=== PATIENT | female | born 1945 | race Caucasian/White ===

== ENCOUNTER 2020-12-29 13:01 | Emergency (ER) | payer MEDICARE, SELFPAY ==
--- NOTE | ~2020-12-29 | XR_ITS ---
EXAMINATION: PELVIS AND LEFT HIP AND SACRUM AND COCCYX X-RAYS CLINICAL INFORMATION: Fall COMPARISON: None TECHNIQUE: One view of the pelvis and 2 views of the left hip. 3 views of the sacrum and coccyx. FINDINGS: Pelvis and left hip x-ray: there is a left sacral fracture. There is a fracture of the left superior and inferior pubic ramus. The hip joints are normal. No left hip fracture is seen. Soft tissues are unremarkable. Sacrum and coccyx: There are fractures of the left sacrum and left superior and inferior pubic rami. The sacroiliac joints are normal. XR/XR hip LT w PEL1V IMPRESSION: Fracture of the left side of the sacrum and left superior and inferior pubic rami. No hip fracture is seen.
--- NOTE | ~2020-12-29 | XR_ITS ---
EXAMINATION: PELVIS AND LEFT HIP AND SACRUM AND COCCYX X-RAYS CLINICAL INFORMATION: Fall COMPARISON: None TECHNIQUE: One view of the pelvis and 2 views of the left hip. 3 views of the sacrum and coccyx. FINDINGS: Pelvis and left hip x-ray: there is a left sacral fracture. There is a fracture of the left superior and inferior pubic ramus. The hip joints are normal. No left hip fracture is seen. Soft tissues are unremarkable. Sacrum and coccyx: There are fractures of the left sacrum and left superior and inferior pubic rami. The sacroiliac joints are normal. XR/XR sacrum coccyx min 2V IMPRESSION: Fracture of the left side of the sacrum and left superior and inferior pubic rami. No hip fracture is seen.
[2020-12-29 14:20] VITALS: BP 165/109; PULSE 90; RESP 18; TEMP 36.8; O2SAT 96; BMI 22.3
[2020-12-29] MEDS: oxyCODONE HCl Immed Release 5 MG TABLET PO (17:04)
[2020-12-29] MEDS: Lidocaine 4 % Patch ADH..PATCH 1 PATCH TRANSDERMA (17:07)
--- NOTE | 2020-12-29 17:27 | ED_ITS ---
HPI - Extremity Injury (Lower) General Chief Complaint: Extremity Injury, Lower Stated Complaint: fall - lt leg & back pain Time Seen by Provider: 12/29/20 15:41 Source: patient Mode of arrival: ambulatory History of Present Illness HPI Narrative: 75-year-old female [id number] s/p appendectomy, cholecystectomy, lobectomy, presenting to the ED complaining of left-sided buttock/hip pain s/p mechanical slip and fall on black ice this morning on her deck. Denies symptoms prior to fall, reports slipped and fell on left side, denies head trauma or LOC. Denies taking anticoagulation. Has not been ambulatory since incident. Denies numbness, tingling, weakness complaint: hip injury Related Data Allergies Allergy/AdvReac Type Severity Reaction Status Date / Time No Known Allergies Allergy Verified 12/29/20 14:19 Review of Systems Review of Systems: Constitutional: No Fever, No Chills ENT/Mouth: No Ear Pain, No Nasal Congestion, No sore throat, No Rhinorrhea, No Swallowing Difficulty Cardiovascular: No Chest Pain, No SOB Respiratory: No Cough, No Sputum, No Wheezing Gastrointestinal: No Nausea, No Vomiting, No Abdominal pain Genitourinary: No Dysuria, No Urinary Frequency, No Hematuria, No Urinary Incontinence, No Urgency, No Flank Pain Musculoskeletal: + joint pain, No Myalgias, No Joint Swelling Skin: No Skin Lesions, No rash Neuro: No Weakness, No Numbness, No Paresthesias, no head trauma, no LOC, no lightheadedness Yes all other systems are reviewed and are negative Neurologic: Denies Abnormal speech present and Denies Sensory deficit (Neuro) [facility] Past Medical History Attestation statement: The following information was validated with the patient. Medical History (Updated 12/29/20 @ 17:36 by REBA Bansal) [place] (hard of hearing) Surgical History S/P appendectomy S/P cholecystectomy S/P lobectomy of lung Social History Social History Advance Directives: Yes Advance Directives Information Provided: No Advance Directives on File: No Physical Exam Vital Signs: Vital Signs: Last Vital Signs Temp 98.2 F 12/29/20 14:20 Pulse 90 12/29/20 14:20 Resp 18 12/29/20 14:20 BP 165/109 H 12/29/20 14:20 Pulse Ox 96 12/29/20 14:20 Body Mass Index 22.3 Const: General: cooperative, healthy appearing and no acute distress Orientation/consciousness: patient oriented x3 Limitations: no limitations HENMT: Head: Yes normal to inspection and Yes atraumatic Ears: hearing grossly normal bilaterally General nose exam: Normal external nose present Face and sinus: Yes normal facial exam Eyes: General: appearance normal, both eyes and all related structures EOM: EOMs intact bilaterally Neck: Other: No midline cervical spinous tenderness/step-off Neck: Yes normal visual inspection Resp: Effort & Inspection: normal respiratory effort and no respiratory distress Auscultation: clear to auscultation bilaterally Cardio: Rate: regular rate Heart sounds: S1 normal heart sound present and S2 normal heart sound present Peripheral pulses: dorsalis pedis present GI: Inspection: Yes normal to inspection Palpation (GI): Soft to palpation, nontender, no guarding and not rigid : General: Yes no CVA tenderness Back/Spine/Pelvis: Other: No midline thoracic/lumbar spinous tenderness/step- off or deformity. + left-sided buttock MSK tenderness. Pelvis stable, slight ecchymosis to lateral aspect of left hip with tenderness. Passive ROM of hips intact. Pain with external rotation to L hip, limited active ROM secondary to pain. Neurovascular intact distally Back: no CVA tenderness Skin: Rashes: no rashes Neuro: Other: No saddle anesthesia General: patient oriented x3, tone normal and moves all extremities Cognition (Neuro): normal cognition Speech: No Abnormal speech present Sensory Exam: No Sensory deficit (Neuro) Extrem: General: Yes normal to inspection Course Course Course Narrative: XR hip LT w PEL1V / XR sacrum coccyx min 2V IMPRESSION: Fracture of the left side of the sacrum and left superior and inferior pubic rami. No hip fracture is seen. >> case discussed with orthopedic surgeon Dr. Appiah, recommended nonweightbearing, no other orthopedic intervention required. Plan for physical therapy eval and case management consult -1899--ED care transferred to Dr. Rodriguez pending PT/case management MDM - Extremity Injury (Lower) MDM Narrative Medical decision making narrative: 75-year-old female [id number] s/p appendectomy, cholecystectomy, lobectomy, presenting to the ED complaining of left-sided buttock/hip pain s/p mechanical slip and fall on black ice this morning on her deck. On exam hypertensive likely from pain, nontoxic, no midline spinous tenderness throughout, left buttock/hip tenderness with pain with ROM. Neurovascular intact distally. Concern for fracture vs MSK pain. Low concern for cauda equina/cord compression Plan: X-rays Medical Records Attestation: I reviewed the patient's medical records. Lab Data Attestation: I reviewed the patient's lab results. Discharge Plan Discharge Clinical Impression: Fracture of multiple pubic rami, Fracture of sacrum Patient Disposition: Still a Patient
--- NOTE | 2020-12-29 18:53 | PHA.MEDREC ---
Pharmacy Consult ? Medication Reconciliation Pharmacy has completed the medication reconciliation.
[2020-12-29 19:29] VITALS: BP 174/113; PULSE 99; RESP 16; O2SAT 95
--- NOTE | 2020-12-29 19:31 | PC.NURSE ---
PT resting in bed comfortably, VSS. PT denies any pain at this time while lying in bed, not moving. PT is awaiting PT eval in the morning.
--- NOTE | 2020-12-29 20:36 | PC.NURSE ---
Pt alert and oriented x4, calm and cooperative. Pt states pain improved with meds given. Pt states she is comfortable at this time. Pt resting in stretcher without complaints, will continue to monitor.
[2020-12-29 20:38] VITALS: BP 170/104; PULSE 91; RESP 16; O2SAT 97
[2020-12-29 21:41] VITALS: BP 167/95; PULSE 101; RESP 18; O2SAT 96
[2020-12-30] VITALS (7 sets, daily range): BP systolic 134–168; BP diastolic 81–107; PULSE 83–106; RESP 16–18; TEMP 36.7–36.9; O2SAT 96–97
[2020-12-30] MEDS: oxyCODONE HCl Immed Release 5 MG TABLET PO ×2 (01:12→07:47)
--- NOTE | 2020-12-30 06:26 | PC.NURSE ---
Pt alert and oriented x4, calm and cooperative. Pt complained of pain in left buttock to left hip, medicated for pain and stated pain relief. Pt slept most of shift production associate. Vitals stable at this time. No IV in place. Pt voided in bed otto throughout shift when needed. Pt resting asleep in stretcher at this time. Will continue to monitor.
--- NOTE | 2020-12-30 10:17 | MHC.CM.ED ---
Received case management consult overnight. Patient came to the ER due to a fall. Patient found to have a pubic ramus fracture. Physical therapy eval completed. Home therapy is recommended. Met with patient and son, Kai. Patient lives with her , normally ambulates independently and had no services prior to coming to the ER. PCP verified. Patient received 3 Moderna vaccines. Patient has a HCP at home and will attempt to obtain a copy. Patient and Kai agreeable to referral to [facility] for retirement, physical therapy and occupational therapy. [facility] booked for 11am. Patient, Kai, Graciela BAILON and Carrillo BRITTON aware. Continue to monitor for d/c needs.
== END 2020-12-30 11:20 | disposition home or self-care (01) ==
PROVIDERS: Emergency Provider Emergency Medicine; PCP Internal Medicine
DX: S32.509A Unspecified fracture of unspecified pubis, initial encounter for closed fracture (principal); S32.10XA Unspecified fracture of sacrum, initial encounter for closed fracture; W00.0XXA Fall on same level due to ice and snow, initial encounter; Y93.9 Activity, unspecified; Y92.008 Other place in unspecified non-institutional (private) residence as the place of occurrence of the external cause; Y99.9 Unspecified external cause status
CPT/HCPCS: 72220; 73502; 97162; 99285

== ENCOUNTER 2021-01-28 08:14 | Outpatient (REF) | payer MEDICARE, SELFPAY ==
--- NOTE | ~2021-01-28 | XR_ITS ---
EXAMINATION: XR PELVIS CLINICAL INFORMATION: Pain in unspecified hip. COMPARISON: Pelvic radiograph done on 12/29/2020. TECHNIQUE: AP view of the pelvis. FINDINGS: Evidence of callus formation is noted at the site of the left pubic rami fracture. Contour deformity is noted within the left hemisacrum corresponding to the site of previously documented fracture without any definite radiographic evidence of callus formation. Moderate diffuse osteopenia. Mild osteitis pubis, unchanged. The soft tissues are unremarkable. Atherosclerotic disease of the aorta is noted. XR/XR pelvis 1-2V IMPRESSION: 1. Evidence of interval healing at the site of the left pubic rami fractures. 2. No other significant change since the prior pelvic radiograph done on 12/29/2020.
== END 2021-01-28 08:15 | disposition home or self-care (01) ==
LOC: HO.HOSX 08:14
PROVIDERS: Visit Provider Physician Assistant
DX: S32.599A Other specified fracture of unspecified pubis, initial encounter for closed fracture (principal)
CPT/HCPCS: 72170; 99202

== ENCOUNTER 2021-05-04 09:43 | Outpatient (REF) | payer MEDICARE, SELFPAY ==
[2021-05-04 11:43] LABS: MANUAL DIFF FLAG NO
[2021-05-04 11:56] LABS: Basophils Absolute Auto 0.1 X10*3/uL (0.0-0.2); Basophils Percent Auto 1.3 % (0-2); Eosinophils Absolute Auto 0.2 X10*3/uL (0.0-0.4); Eosinophils Percent Auto 4.7 % (0-4); Hematocrit 44.9 % (37.0-47.0); Imm Gran Abs Auto 0.02 X10*3/uL (0.00-0.03); Imm Gran Pct Auto 0.4 % (0.0-0.4); Lymphocytes Absolute Auto 1.6 X10*3/uL (1.2-4.9); Lymphocytes Percent Auto 34.3 % (20-40); Mean Corpuscular HGB Conc 31.2 g/dl (31.0-35.0); Mean Corpuscular Hemoglobin 27.6 pg (27.0-33.0); Mean Corpuscular Volume 88.6 fL (80.0-98.0); Mean Platelet Volume 11.3 fL (9.4-12.3); Monocytes Absolute Auto 0.3 X10*3/uL (0.1-1.2); Monocytes Percent Auto 6.8 % (2-11); Neutrophils Absolute Auto 2.5 x10*3/uL (2.0-8.3); Neutrophils Percent Auto 52.5 % (45-73); Platelet Count 233 X10*3/uL (160-400); Red Blood Count 5.07 X10*6/uL (4.20-5.50); White Blood Count 4.7 X10*3/uL (4.8-10.8)
[2021-05-04 12:08] LABS: Alanine Aminotransferase 70 U/L (0-31); Albumin Level 4.5 g/dL (3.5-5.0); Alkaline Phosphatase 85 U/L (39-117); Anion Gap 12 (12-20); Aspartate Amino Transferase 46 U/L (5-31); Bilirubin Total 0.9 mg/dL (0.0-1.0); Blood Urea Nitrogen 16 mg/dL (9-16); Calcium 10.1 mg/dL (8.4-10.2); Carbon Dioxide 29 mmol/L (22-29); Chloride 104 mmol/L (96-108); Cholesterol 215 mg/dL; Estimated Glomerular Filt Rate 60; Glucose Fasting 85 mg/dL (60-99); HDL Cholesterol 49 mg/dL; LDL Cholesterol Calculated 152 mg/dl; Potassium 3.8 mmol/L (3.3-5.1); Sodium 141 mmol/L (135-145); Total Protein 6.9 g/dL (6.5-8.0); Triglycerides 74 mg/dL
[2021-05-04 12:30] LABS: Thyroid Stimulating Hormone 4.59 uIU/mL (0.32-4.0); Vitamin D 25-OH Total 29.2 ng/mL (>30)
== END 2021-05-04 09:44 | disposition home or self-care (01) ==
LOC: HO.HMGCLDS 09:43
PROVIDERS: Visit Provider Internal Medicine
DX: R94.5 Abnormal results of liver function studies (principal); M81.0 Age-related osteoporosis without current pathological fracture; E78.00 Pure hypercholesterolemia, unspecified; E03.9 Hypothyroidism, unspecified
CPT/HCPCS: 36415; 80053; 80061; 82306; 84443; 85025

== ENCOUNTER 2021-06-03 15:42 | Outpatient (REF) | payer MEDICARE, SELFPAY ==
--- NOTE | ~2021-06-03 | XR_ITS ---
EXAMINATION: XR CHEST CLINICAL INFORMATION: Cough. COMPARISON: 02/27/2019 chest radiographs. TECHNIQUE: 2 views of the chest were obtained. FINDINGS: The lungs are clear. The heart and mediastinal structures are unremarkable. Mild biapical pleural thickening and scarring is seen. The soft tissues are unremarkable. XR/XR chest 2V IMPRESSION: Stable chest. No acute cardiopulmonary process.
== END 2021-06-03 15:43 | disposition home or self-care (01) ==
LOC: HO.HMGCX 15:42
PROVIDERS: PCP Internal Medicine; Visit Provider Internal Medicine
DX: R05.9 Cough, unspecified (principal)
CPT/HCPCS: 71046

== ENCOUNTER 2022-01-28 09:35 | Outpatient (REF) | payer MEDICARE, SELFPAY ==
[2022-01-28 13:29] LABS: Alanine Aminotransferase 60 U/L (0-31); Albumin Level 4.5 g/dL (3.5-5.0); Alkaline Phosphatase 66 U/L (39-117); Anion Gap 12 (12-20); Aspartate Amino Transferase 52 U/L (5-31); Bilirubin Total 0.7 mg/dL (0.0-1.0); Blood Urea Nitrogen 18 mg/dL (9-16); Carbon Dioxide 28 mmol/L (22-29); Chloride 105 mmol/L (96-108); Cholesterol 207 mg/dL; Estimated Glomerular Filt Rate > 60; Glucose Fasting 88 mg/dL (60-99); HDL Cholesterol 44 mg/dL; LDL Cholesterol Calculated 151 mg/dl; Sodium 141 mmol/L (135-145); Thyroid Stimulating Hormone 4.01 uIU/mL (0.32-4.0); Total Protein 6.6 g/dL (6.5-8.0); Triglycerides 61 mg/dL; Vitamin D 25-OH Total 28.4 ng/mL (>30)
== END 2022-01-28 09:36 | disposition home or self-care (01) ==
LOC: HO.HMGCLDS 09:35
PROVIDERS: PCP Internal Medicine; Visit Provider Internal Medicine
DX: E78.00 Pure hypercholesterolemia, unspecified (principal); M81.0 Age-related osteoporosis without current pathological fracture
CPT/HCPCS: 36415; 80053; 80061; 82306; 84443

== ENCOUNTER 2022-07-30 07:04 | Outpatient (REF) | payer MEDICARE, SELFPAY ==
[2022-07-30 11:24] LABS: MANUAL DIFF FLAG NO
[2022-07-30 11:30] LABS: Basophils Absolute Auto 0.1 X10*3/uL (0.0-0.2); Basophils Percent Auto 1.1 % (0-2); Eosinophils Absolute Auto 0.2 X10*3/uL (0.0-0.4); Eosinophils Percent Auto 3.2 % (0-4); Hematocrit 43.7 % (37.0-47.0); Hemoglobin 13.6 g/dl (12.0-16.0); Imm Gran Abs Auto 0.02 X10*3/uL (0.00-0.03); Imm Gran Pct Auto 0.4 % (0.0-0.4); Lymphocytes Absolute Auto 1.9 X10*3/uL (1.2-4.9); Lymphocytes Percent Auto 35.9 % (20-40); Mean Corpuscular HGB Conc 31.1 g/dl (31.0-35.0); Mean Corpuscular Hemoglobin 27.4 pg (27.0-33.0); Mean Corpuscular Volume 88.1 fL (80.0-98.0); Mean Platelet Volume 11.5 fL (9.4-12.3); Monocytes Absolute Auto 0.5 X10*3/uL (0.1-1.2); Monocytes Percent Auto 8.5 % (2-11); Neutrophils Absolute Auto 2.7 x10*3/uL (2.0-8.3); Neutrophils Percent Auto 50.9 % (45-73); Platelet Count 243 X10*3/uL (160-400); Red Blood Count 4.96 X10*6/uL (4.20-5.50); Red Cell Distribution Width 14.5 % (11.0-16.0); White Blood Count 5.3 X10*3/uL (4.8-10.8)
[2022-07-30 12:24] LABS: Alanine Aminotransferase 71 U/L (0-31); Albumin Level 4.3 g/dL (3.5-5.0); Alkaline Phosphatase 66 U/L (39-117); Anion Gap 12 (12-20); Aspartate Amino Transferase 55 U/L (5-31); Bilirubin Total 0.6 mg/dL (0.0-1.0); Blood Urea Nitrogen 17 mg/dL (9-16); Carbon Dioxide 27 mmol/L (22-29); Chloride 107 mmol/L (96-108); Cholesterol 189 mg/dL; Estimated Glomerular Filt Rate > 60; Glucose Fasting 92 mg/dL (60-99); HDL Cholesterol 43 mg/dL; LDL Cholesterol Calculated 133 mg/dl; Sodium 142 mmol/L (135-145); Total Protein 6.8 g/dL (6.5-8.0); Triglycerides 66 mg/dL
[2022-07-30 12:40] LABS: Thyroid Stimulating Hormone 5.57 uIU/mL (0.32-4.0); Vitamin D 25-OH Total 42.5 ng/mL (>30)
== END 2022-07-30 07:05 | disposition home or self-care (01) ==
LOC: HO.HMGCLDS 07:04
PROVIDERS: PCP Internal Medicine; Visit Provider Internal Medicine
DX: E78.00 Pure hypercholesterolemia, unspecified (principal); E03.9 Hypothyroidism, unspecified; R94.5 Abnormal results of liver function studies; M81.0 Age-related osteoporosis without current pathological fracture
CPT/HCPCS: 36415; 80053; 80061; 82306; 84443; 85025

== ENCOUNTER 2022-08-18 12:41 | Outpatient (REF) | payer MEDICARE, SELFPAY ==
--- NOTE | ~2022-08-18 | XR_ITS ---
EXAMINATION: XR CHEST CLINICAL INFORMATION: Chronic cough COMPARISON: 02/27/2019 and 06/03/2021 TECHNIQUE: 2 views of the chest were obtained. FINDINGS: Lungs are well expanded. Again noted is the mild biapical pleural thickening without change compared to 02/27/2019. No interstitial lung disease. No evidence of pulmonary mass, consolidation or pleural effusion. Cardiac silhouette is normal in size. The descending thoracic aorta is tortuous. The hilar contours are normal. No suspicious bone lesions. XR/XR chest 2V IMPRESSION: * No evidence of lung mass, pneumonia or interstitial lung disease. * No acute cardiopulmonary disease compared to 06/03/2021.
== END 2022-08-18 12:42 | disposition home or self-care (01) ==
LOC: HO.HMGCX 12:41
PROVIDERS: PCP Internal Medicine; Visit Provider Internal Medicine
DX: R05.3 Chronic cough (principal)
CPT/HCPCS: 71046

== ENCOUNTER 2022-09-01 10:13 | Outpatient (REF) | payer MEDICARE, SELFPAY ==
--- NOTE | 2022-09-01 | PFT_ITS ---
FLOWS: 1. FEV1 87% of predicted at 1.73 L. 2. FVC 86% of predicted at 2.30 L. 3. FEV1 to FVC ratio of 0.76. 4. No bronchodilator response. LUNG VOLUMES: 1. Total lung capacity 89% of predicted at 4.38 L. 2. Residual volume 99% of predicted at 2.25 L. 3. Slow vital capacity 80% of predicted at 2.13 L. 4. Expiratory reserve volume 65% of predicted at 0.36 L. 5. Diffusion capacity is mildly decreased, diffusion capacity corrects to normal after adjustment for alveolar ventilation. IMPRESSION: No obstructive or restrictive ventilatory defect. No bronchodilator response. Jaime Argueta MD AP/MODL / [phone]
== END 2022-09-01 10:14 | disposition home or self-care (01) ==
LOC: HO.RESP 10:13
PROVIDERS: PCP Internal Medicine; Visit Provider Internal Medicine
DX: R05.3 Chronic cough (principal)
CPT/HCPCS: 94060; 94727; 94729

== ENCOUNTER → 2022-09-01 10:15 | Outpatient (BNV) | payer MEDICARE, SELFPAY | PROVIDERS: PCP Internal Medicine; Visit Provider Internal Medicine Pulmonary Disease | DX: R05.3 Chronic cough (principal) | CPT/HCPCS: 94060; 94727; 94729 ==

== ENCOUNTER 2023-05-05 10:25 | Outpatient (REF) | payer MEDICARE, SELFPAY ==
[2023-05-05 13:28] LABS: MANUAL DIFF FLAG NO
[2023-05-05 13:42] LABS: Basophils Absolute Auto 0.1 X10*3/uL (0.0-0.2); Eosinophils Absolute Auto 0.2 X10*3/uL (0.0-0.4); Eosinophils Percent Auto 4.4 % (0-4); Hematocrit 44.9 % (37.0-47.0); Hemoglobin 14.2 g/dl (12.0-16.0); Imm Gran Abs Auto 0.02 X10*3/uL (0.00-0.03); Imm Gran Pct Auto 0.4 % (0.0-0.4); Lymphocytes Absolute Auto 1.7 X10*3/uL (1.2-4.9); Lymphocytes Percent Auto 34.1 % (20-40); Mean Corpuscular HGB Conc 31.6 g/dl (31.0-35.0); Mean Corpuscular Hemoglobin 27.4 pg (27.0-33.0); Mean Corpuscular Volume 86.7 fL (80.0-98.0); Monocytes Absolute Auto 0.4 X10*3/uL (0.1-1.2); Monocytes Percent Auto 7.6 % (2-11); Neutrophils Absolute Auto 2.6 x10*3/uL (2.0-8.3); Neutrophils Percent Auto 52.5 % (45-73); Platelet Count 217 X10*3/uL (160-400); Red Blood Count 5.18 X10*6/uL (4.20-5.50); Red Cell Distribution Width 13.6 % (11.0-16.0)
[2023-05-05 13:58] LABS: Alanine Aminotransferase 45 U/L (0-31); Albumin Level 4.4 g/dL (3.5-5.0); Alkaline Phosphatase 71 U/L (39-117); Anion Gap 12 (12-20); Aspartate Amino Transferase 31 U/L (5-31); Bilirubin Total 0.6 mg/dL (0.0-1.0); Blood Urea Nitrogen 24 mg/dL (9-16); Carbon Dioxide 28 mmol/L (22-29); Chloride 106 mmol/L (96-108); Cholesterol 211 mg/dL (<200); Estimated Glomerular Filt Rate > 60; Glucose Fasting 86 mg/dL (60-99); HDL Cholesterol 45 mg/dL (>40); LDL Cholesterol Calculated 150 mg/dL (<100); Potassium 3.9 mmol/L (3.3-5.1); Sodium 142 mmol/L (135-145); Total Protein 6.9 g/dL (6.5-8.0); Triglycerides 80 mg/dL (<150)
[2023-05-05 14:19] LABS: Free T4 (Free Thyroxine) 0.97 ng/dL (0.71-1.85); Thyroid Stimulating Hormone 3.89 uIU/mL (0.32-4.0); Vitamin D 25-OH Total 44.4 ng/mL (>30)
== END 2023-05-05 10:26 | disposition home or self-care (01) ==
LOC: HO.HMGCLDS 10:25
PROVIDERS: PCP Internal Medicine; Visit Provider Internal Medicine
DX: M81.0 Age-related osteoporosis without current pathological fracture (principal); E03.9 Hypothyroidism, unspecified; E78.00 Pure hypercholesterolemia, unspecified; R94.5 Abnormal results of liver function studies
CPT/HCPCS: 36415; 80053; 80061; 82306; 84439; 84443; 85025

== ENCOUNTER 2023-07-25 10:31 | Outpatient (AMB) | payer MEDICARE, SELFPAY ==
[2023-07-25 11:12] VITALS: BP 120/70; PULSE 92; TEMP 36.5; O2SAT 95; BMI 24.4
--- NOTE | 2023-07-25 11:12 | AM.OFFWIN_ITS ---
Intake Vital Signs 07/25/23 11:12 Height 5 ft 3 in Weight 138 lb BMI 24.4 BP 120/70 Blood Pressure Location Lt brachial Position Sitting Pulse 92 Pulse Source Pulse Oximeter Temp 97.7 F Temp Source Temporal Artery Scan Pulse Oximetry (%) 95 Oxygen Delivery Method Room Air Intake Visit Reasons: [employer] Back/Head injury due to fall last week Intake Note: pt is here today for back and head injury started 1 week ago Patient Tobacco Use Status: Never used Tobacco Allergies No Known Allergies Allergy (Verified 07/25/23 11:19) Do you need a note to return to daycare/school/sports/work: No HPI HPI Comments History of Present Illness Details Patient is a 77-year-old female who is here complaining of low back pain. She states that 6 days ago, she tripped over her sneakers (which were not on her feet) and fell backwards. She states she did not lose consciousness but she did have a bit of a ?egg ?on her head which has since gone down. She states she has residual low back pain, she denies any loss of control of her bladder or bowels. She states she has been using ice and heat as well as ibuprofen with minimal relief. She says it is worse when she goes to lay down at night or sits for a long period of time. She is having difficulty sleeping. PFSH Medical History [place] (hard of hearing) Surgical History S/P appendectomy S/P cholecystectomy S/P lobectomy of lung Social History (Updated 01/28/21 @ 10:53 by Ralph Steiner) Patient Tobacco Use Status: Never used Tobacco Current occupational status: disabled Current occupation: rt handed Review of Systems Const All systems reviewed & are unremarkable except as noted in HPI and below Physical Exam Vital Signs: Last Vital Signs Temp 97.7 F 07/25/23 11:12 Pulse 92 07/25/23 11:12 BP 120/70 07/25/23 11:12 Pulse Ox 95 07/25/23 11:12 Oxygen Delivery Method Room Air 07/25/23 11:12 BMI result Body Mass Index 24.4 Const General: cooperative, healthy appearing, comfortable, no acute distress and well developed Orientation/consciousness: patient oriented x3 Limitations: no limitations HEENT Head: Yes normal to inspection Eyes General: appearance normal, both eyes and all related structures Neck Neck: Yes normal visual inspection and Yes full ROM Resp Effort & Inspection: normal respiratory effort and able to speak in complete sentences Back/Spine/Pelvis Cervical Spine: cervical ROM normal and No Cervical spine tenderness Thoracic/Lumbar Spine: thoraco-lumbar ROM normal (some pain with movement), paraspinal muscle tenderness bilaterally, thoraco-lumbar spasm bilaterally, No thoracic spinal tenderness and No lumbar spinal tenderness Sacrum: no tenderness Skin General skin exam: no rashes or lesions noted Neuro General: patient oriented x3 Extrem General: Yes normal to inspection Assessment & Plan Assessment & Plan (1) Back pain: Code(s): M54.9 - Dorsalgia, unspecified Qualifiers: Back pain laterality: bilateral Back pain location: low back pain Chronicity: acute Sciatica presence: without sciatica Qualified Code(s): M54.50 - Low back pain, unspecified Plan: Recommended proper dose of ibuprofen to take, as well as using ice on the area. Reviewed muscle relaxer use, advised to be careful at night when she gets up to use the bathroom. Advised no drinking alcohol or driving a car for at least 8 hours after she takes the medication. Also recommended she follow up with her primary care doctor if she has not getting any relief in the next week. Patient understands and agrees with plan Plan see above Medications: New cyclobenzaprine 5 mg PO BEDTIME PRN 7 tabs 0RF muscle spasm Coding Level of Care Code New Pt Level 3 (64766) Diagnoses Acute bilateral low back pain without sciatica M54.50 Back pain laterality: bilateral Back pain location: low back pain Chronicity: acute Sciatica presence: without sciatica
== END 2023-07-25 11:51 | disposition home or self-care (01) ==
PROVIDERS: PCP Internal Medicine; Visit Provider Physician Assistant
DX: M54.50 Low back pain, unspecified (principal)
CPT/HCPCS: 99203

== ENCOUNTER 2023-07-27 11:38 | Outpatient (REF) | payer MEDICARE, SELFPAY ==
--- NOTE | ~2023-07-27 | XR_ITS ---
EXAMINATION: XR THORACIC SPINE, LUMBAR SPINE CLINICAL INFORMATION: Back pain, dorsal and lumbar back pain. COMPARISON: 08/18/2022 chest radiograph. 01/28/2021 pelvis, 12/29/2020 pelvis, sacrum/coccyx, left hip. TECHNIQUE: 3 views of the thoracic spine. 3 views of the lumbar spine. FINDINGS: Thoracic Spine: S-shaped thoracolumbar scoliosis. The bones are diffusely demineralized. Degenerative changes on very limited images of the cervical spine could be evaluated with dedicated cervical spine radiographs. Severe wedge compression deformity of a lower thoracic vertebral body, likely T12, not appreciated on 08/18/2022 chest radiograph. Lumbar Spine: S-shaped thoracolumbar scoliosis. Bones are diffusely demineralized. Interval healing of partially image fractures of sacrum identified on exam of 2020. Lumbar spondylosis with moderate loss of disc space height at L5-S1. Facet arthritis in the lower lumbar spine. Minimal grade 1 anterolisthesis of L4 on L5. XR/XR lumbar spine 4V min IMPRESSION: 1. Severe wedge compression deformity of a lower thoracic vertebral body, likely T12, not appreciated on 08/18/2022 chest radiograph. 2. Lumbar spondylosis with moderate loss of disc space height at L5-S1. 3. Facet arthritis in the lower lumbar spine.
--- NOTE | ~2023-07-27 | XR_ITS ---
EXAMINATION: XR THORACIC SPINE, LUMBAR SPINE CLINICAL INFORMATION: Back pain, dorsal and lumbar back pain. COMPARISON: 08/18/2022 chest radiograph. 01/28/2021 pelvis, 12/29/2020 pelvis, sacrum/coccyx, left hip. TECHNIQUE: 3 views of the thoracic spine. 3 views of the lumbar spine. FINDINGS: Thoracic Spine: S-shaped thoracolumbar scoliosis. The bones are diffusely demineralized. Degenerative changes on very limited images of the cervical spine could be evaluated with dedicated cervical spine radiographs. Severe wedge compression deformity of a lower thoracic vertebral body, likely T12, not appreciated on 08/18/2022 chest radiograph. Lumbar Spine: S-shaped thoracolumbar scoliosis. Bones are diffusely demineralized. Interval healing of partially image fractures of sacrum identified on exam of 2020. Lumbar spondylosis with moderate loss of disc space height at L5-S1. Facet arthritis in the lower lumbar spine. Minimal grade 1 anterolisthesis of L4 on L5. XR/XR thoracic spine 2V IMPRESSION: 1. Severe wedge compression deformity of a lower thoracic vertebral body, likely T12, not appreciated on 08/18/2022 chest radiograph. 2. Lumbar spondylosis with moderate loss of disc space height at L5-S1. 3. Facet arthritis in the lower lumbar spine.
== END 2023-07-27 11:39 | disposition home or self-care (01) ==
LOC: HO.HMGCX 11:38
PROVIDERS: PCP Internal Medicine; Visit Provider Internal Medicine
DX: M54.50 Low back pain, unspecified (principal)
CPT/HCPCS: 72070; 72110

== ENCOUNTER 2024-05-09 11:27 | Outpatient (AMB) | payer MEDICARE, SELFPAY ==
--- NOTE | 2024-05-09 11:43 | A.OFFPC_ITS ---
Vital Signs 05/09/24 11:49 Height 5 ft 1.5 in Weight 137 lb BMI 25.5 BP 120/74 Blood Pressure Location Rt brachial Pulse 77 Pulse Source Pulse Oximeter Temp 97.3 F Pulse Oximetry (%) 97 Intake Visit Reasons: 6 month follow up Intake Note: no issues Allergies tetnus Adverse Reaction (Uncoded 05/09/24 15:26) Nausea Medication List - Last Reconciled 05/09/24 by Lisa Sin PA-C cyclobenzaprine 5 mg PO BEDTIME PRN melatonin 10 mg PO BEDTIME PRN PFSH Medical History (Updated 05/09/24 @ 15:35 by Lisa Sin PA-C) Overweight (BMI 25.0-29.9) Follow-up exam, 3-6 months since previous exam History of mammogram (~12/28/21) History of pelvic fracture Central retinal vein occlusion PVCs (premature ventricular contractions) History of menopause Dysfunctional uterine bleeding Iron deficiency anemia Osteoarthritis Osteoporosis Elevated LFTs Mild hypercholesterolemia Chronic cough [place] (hard of hearing) Surgical History History of colonoscopy (~01/25/18) History of dilatation and curettage H/O wrist surgery S/P excision of lipoma S/P lobectomy of lung S/P appendectomy S/P cholecystectomy Social History Patient Tobacco Use Status: Never used Tobacco Current occupational status: disabled Current occupation: rt handed Questionnaire PHQ-9 Over the last 2 weeks, how often have you been bothered by any of the following problems? 1. Little interest or pleasure in doing things: not at all 2. Feeling down, depressed, or hopeless: not at all 3. Trouble falling or staying asleep, or sleeping too much: several days 4. Feeling tired or having little energy: not at all 5. Poor appetite or overeating: not at all 6. Feeling bad about yourself - or that you are a failure or have let yourself or your family down: not at all 7. Trouble concentrating on things, such as reading the newspaper or watching television: not at all 8. Moving or speaking so slowly that other people could have noticed. Or the opposite - being so fidgety or restless that you have been moving around a lot more than usual: not at all 9. Thoughts that you would be better off or of hurting yourself in some way: not at all Total score: 1 Depression Screening Interpretation: Negative Depression Screening Done: Yes 24762 - PHQ-9 Billing: Yes Source: Developed by Drs. Jose Cortez, Alexandrea Street, Satya Reed and colleagues, with an educational geoffrey from [employer]. Thrive Questionnaire I am a: Patient What is your living situation today?: I have a steady place to live Within the past 12 months, did the food you bought not last and you didn't have the money to get more?: Never true Within the past 12 months, did you worry whether your food would run out before you got money to buy more?: Never true Do you have trouble paying for medicines?: No Do you have trouble getting transportation to medical appointments?: No Do you have trouble paying your heating and electricity bill?: No Do you have trouble taking care of your child, family member or friend?: No Do you have trouble with day-to-day activities such as bathing, preparing meals, shopping, managing finances, etc.?: No Are you currently unemployed and looking for a job?: No Are you interested in more education?: No THRIVE Score: 0 AUDIT C Alcohol Use Questionnaire (AUDIT-C) 1. How often do you have a drink containing alcohol?: Monthly or less 2. How many drinks containing alcohol do you have on a typical day when you are drinking?: 1 or 2 3. How often do you have six or more drinks on one occasion?: Never Total Score: 1 Score Reviewed/Action Taken: No TIMOTHY-7 AMB Questionnaire TIMOTHY-7 Date TIMOTHY - 7 assessed: 05/09/24 Feeling nervous, anxious, or on edge: 0 = Not at all Not being able to stop or control worryin = Several days Worrying too much about different things: 0 = Not at all Trouble relaxin = Not at all Being so restless that it is hard to sit still: 0 = Not at all Becoming easily annoyed or irritable: 0 = Not at all Feeling afraid as if something awful might happen: 0 = Not at all Total TIMOTHY-7 score (0-4 normal; 5-9 mild; 10-14 moderate; 15-21 severe): 1 Source: Developed by Drs. Jose Cortez, Alexandrea Street, Satya Reed and colleagues, with an educational geoffrey from [employer]. TIMOTHY-7 Assessment Billing TIMOTHY-7 Assessment Tool: TIMOHTY-7 Assessment 35085 Physical exam (Primary Care) Vital Signs: Last Vital Signs Temp 97.3 F 05/09/24 11:49 Pulse 77 05/09/24 11:49 BP 120/74 05/09/24 11:49 Pulse Ox 97 05/09/24 11:49 Care Plan Goal for BP management: <130/80 at Goal BMI result Body Mass Index 25.5 BMI Assessment/Plan discussion: High BMI High, discussed plan: lifestyle, weight reduction, dietary, physical activity and alcohol moderation Tobacco/Smoking Status: Tobacco use Status Patient Tobacco Use Status Never used Tobacco 05/09/24 11:48 PHQ-9: PHQ-9 Score PHQ-9: Total score 1 05/09/24 12:20 Depression Screening Interpretation: Negative Coding Level of Care Code Est Pt Level 4 (67142) Complex EM visit Add On G2211 Diagnoses Chronic cough R05.3 Osteoporosis M81.0 Osteoarthritis M19.90 Mild hypercholesterolemia E78.00 History of menopause Z78.0 Follow-up exam, 3-6 months since previous exam Z09 Overweight (BMI 25.0-29.9) E66.3 Additional Codes TIMOTHY-7 Assessment Billing - TIMOTHY-7 Assessment Tool: TIMOTHY-7 Assessment 17894 ([id number]) PHQ-9 - 14182 - PHQ-9 Billing: Yes ([id number]) Assessment & Plan Assessment & Plan (1) Chronic cough: Code(s): R05.3 - Chronic cough Category: Medical Plan: A CT of the chest without contrast is advised to rule out underlying causes. Given the chronic nature and the history of thoracic surgery from childhood, evaluating structural integrity is crucial. (2) Osteoporosis: Code(s): M81.0 - Age-related osteoporosis without current pathological fracture Category: Medical Plan: Persistence with calcium and Vitamin D supplementation to mitigate fracture risk. Monitoring bone density as part of regular health assessments. (3) Osteoarthritis: Code(s): M19.90 - Unspecified osteoarthritis, unspecified site Category: Medical Plan: Persistence with calcium and Vitamin D supplementation to mitigate fracture risk. Monitoring bone density as part of regular health assessments. (4) Mild hypercholesterolemia: Code(s): E78.00 - Pure hypercholesterolemia, unspecified Category: Medical Plan: Continues to show improvement with existing lifestyle modifications. Periodic evaluations to ensure ongoing management efficacy. (5) History of menopause: Code(s): Z78.0 - Asymptomatic menopausal state Category: Medical Plan: Condition is chronic and stable continue to monitor. (6) Follow-up exam, 3-6 months since previous exam: Code(s): Z09 - Encounter for follow-up examination after completed treatment for conditions other than malignant neoplasm Category: Medical (7) Overweight (BMI 25.0-29.9): Code(s): E66.3 - Overweight Category: Medical Plan: Patient to improve her diet and exercise regimen. Condition is chronic and stable continue to monitor. Plan Plan Patient was informed and verbally consented to the use of an ambient scribe for clinic note documentation during this visit. 1. Osteoporosis Persistence with calcium and Vitamin D supplementation to mitigate fracture risk. Monitoring bone density as part of regular health assessments. 2. Dyslipidemia Continues to show improvement with existing lifestyle modifications. Periodic evaluations to ensure ongoing management efficacy. 3. Lumbar Vertebral Fracture Management of lumbar pain is maintained through occasional analgesics. Previous advisement against surgical intervention persists. 4. Chronic Cough A CT of the chest without contrast is advised to rule out underlying causes. Given the chronic nature and the history of thoracic surgery from childhood, evaluating structural integrity is crucial. 5. Ventricular premature depolarization Maintain regular monitoring, no immediate intervention needed unless cardiac irregularities escalate. 6. Osteoarthritis Continued engagement in supportive measures, no escalation of therapy, due to symptom stability. Discussion Notes During the consultation, I deliberated options with the patient, including detailed imaging tests to verify the chronic cough's origins due to no clear antecedents for the symptoms and a complex surgical history. I advised using a CT scan aiming to unearth any latent pulmonary anomalies. The patient understood the necessity of such an approach considering her unresolved cough and pertinent past medical events. Additionally, we discussed pharmacologic management for her pain while emphasizing the lack of necessity for current interventions on cardiac irregularities or osteoarthritis. The patient verbalized comprehension of osteoporosis management via nutrient supplementation. Regular blood work is advised to confirm the favorable control of dyslipidemia. A follow-up in six months or earlier dependent on test results was agreed upon. Orders: Orders Complete Blood Count Auto Diff Today Z00.00 - Encounter for general adult medical examination without abnormal findings Hemoglobin A1c Today Z00.00 - Encounter for general adult medical examination without abnormal findings Lipid Panel Today Z00.00 - Encounter for general adult medical examination without abnormal findings TSH reflex Free T4 Today Z00.00 - Encounter for general adult medical examination without abnormal findings Vitamin B12 and Folate Today Z00.00 - Encounter for general adult medical examination without abnormal findings Vitamin D 25-OH Total Today Z00.00 - Encounter for general adult medical examination without abnormal findings Zinc Today Z00.00 - Encounter for general adult medical examination without abnormal findings Vitamin A Today Z00.00 - Encounter for general adult medical examination without abnormal findings CT chest wo IV con Today R05.3 - Chronic cough Comprehensive Paron. Panel Fast Today Z00.00 - Encounter for general adult medical examination without abnormal findings C Reactive Protein Today Z00.00 - Encounter for general adult medical examination without abnormal findings Erythrocyte Sedimentation Rate Today Z00.00 - Encounter for general adult medical examination without abnormal findings Magnesium Today Z00.00 - Encounter for general adult medical examination without abnormal findings Liver Panel Today Z00.00 - Encounter for general adult medical examination without abnormal findings Vitamin B1 Today Z00.00 - Encounter for general adult medical examination without abnormal findings Patient Instructions: Patient Instructions - Proceed with a CT scan of the chest as scheduled. - Continue taking Vitamin D and calcium supplements as directed. - Utilize prescribed pain medication on an as-needed basis. - Maintain current levels of physical activity, and engage in low-impact exercises to support joint health. - Attend reevaluation appointments and follow through with blood work as discussed. - Contact the office for any worsening symptoms or new medical concerns. - Attend follow-up consultation in six months or sooner if advised by diagnostics. Scribe Plan - Not visible on output: History of Present Illness The patient is a 78 year old female presenting for a six-month follow-up for her chronic medical conditions. She was a patient of Dr. Cuadra. She reports today with a chronic cough. The cough is characterized as dry and persistent, and although not consistently noticeable to the patient, it interrupts sleep and is concerning to her . Hydration provides temporary relief, but there are no damper maker symptoms such as wheezing, chest pain, or shortness of breath. No triggers have been identified, and the patient has never smoked. She has a past medical history significant for a lung resection at the age of [age] due to complications following an infection associated with Caleb Barrera, leading to bronchitis and pneumonia. Despite prior respiratory issues, her only current medication is an occasional analgesic for back pain associated with a lumbar vertebral fracture that was not treated surgically. Additional past medical history includes osteoarthritis, osteoporosis, premature ventricular complexes, and history of pelvic fracture. Previously documented iron deficiency anemia has resolved. Dyslipidemia has been noted but reportedly improved upon recent evaluation. Social History - No history of smoking. - Lives with her , who has significant health concerns. - Uses painkillers sparingly, every few days as needed for back pain. - Takes daily supplements of Vitamin D and calcium. - Indicates management of household and involvement in caring for her . Review of Systems - Respiratory: Reports chronic dry cough, denies shortness of breath or chest pain. - Cardiovascular: Denies chest pain, reports prior premature ventricular c omplexes. - Musculoskeletal: Reports intermittent back pain related to vertebral fracture. - Neurological: Denies any neurologic symptoms. - General: Denies recent fever, weight loss, or fatigue. - Hematologic: History of iron deficiency anemia; resolved. Physical Exam Appearance: Alert. Oriented X3. No acute distress. Head: Normal external exam. Normocephalic. Atraumatic. Eyes: Pupils are equal, round, and reactive to light. Extraocular movements intact. Conjunctiva and sclera normal. Eyelids normal. Ears: External auditory canal normal. Tympanic membranes normal. Right ear has a little bit of wax, left ear has no wax. Throat: Pharynx normal. Uvula midline. Moist mucous membranes. Neck: Normal inspection. Neck supple. Full range of motion. No adenopathy. Thyroid Normal. No meningeal signs. No neck mass noted. Cardiovascular: Normal heart rate and rhythm. Heart sound normal. No murmurs noted. Premature ventricular complexes (PVCs) noted. Pulses normal throughout. Respiratory: No respiratory distress. Painless inspiration. Breath sounds normal. No wheezes/rales/rhonchi noted. Chronic dry cough noted. Chest nontender. No accessory muscle usage noted or decreased air movement noted. Abdomen: Soft and nontender. Bowel sounds normal in all 4 quadrants. No distention noted. No organomegaly noted. No visible injury noted. Back: No costovertebral angle tenderness. Full range of motion noted. Occasional pain noted due to a fractured lower disc. Skin: Skin warm and dry. Normal skin color. Normal skin turgor. No rashes/lesions/lacerations noted. Extremities: No lower extremity edema. Extremities exhibit normal range of motion. Extremities nontender. Neuro: Oriented X 3. No motor deficit. No sensory deficit. Reflexes normal.
[2024-05-09 11:49] VITALS: BP 120/74; PULSE 77; TEMP 36.3; O2SAT 97; BMI 25.5
== END 2024-05-09 12:31 | disposition home or self-care (01) ==
LOC: HO.HMCSH 11:27
PROVIDERS: PCP Internal Medicine; Visit Provider Physician Assistant Medical
DX: R05.3 Chronic cough (principal); M81.0 Age-related osteoporosis without current pathological fracture; M19.90 Unspecified osteoarthritis, unspecified site; E78.00 Pure hypercholesterolemia, unspecified; Z78.0 Asymptomatic menopausal state; Z09 Encounter for follow-up examination after completed treatment for conditions other than malignant neoplasm; E66.3 Overweight

== ENCOUNTER → 2024-05-09 11:27 | Outpatient (BNVA) | payer MEDICARE, SELFPAY | PROVIDERS: PCP Internal Medicine; Visit Provider Physician Assistant Medical | DX: Z09 Encounter for follow-up examination after completed treatment for conditions other than malignant neoplasm (principal); R05.3 Chronic cough; M81.0 Age-related osteoporosis without current pathological fracture; M19.90 Unspecified osteoarthritis, unspecified site; E78.00 Pure hypercholesterolemia, unspecified; E66.3 Overweight; Z78.0 Asymptomatic menopausal state; Z68.25 Body mass index [BMI] 25.0-25.9, adult; Z71.3 Dietary counseling and surveillance | CPT/HCPCS: 96127; 99212 ==

== ENCOUNTER 2024-06-07 07:03 | Outpatient (REF) | payer MEDICARE, SELFPAY ==
--- NOTE | ~2024-06-07 | CT_ITS ---
CLINICAL HISTORY: R05.3 - Chronic cough CT chest without contrast Comparison: None Findings: The heart size is normal. The visualized thyroid and mediastinum are unremarkable. No consolidation or effusion. Bronchiectasis of the right lower lobe. Right apical scarring. There are micro nodules, i.e., 2 mm subpleural nodule of the left lower lobe series 4, image 83. The visualized upper abdomen is unremarkable. Severe compression fracture of the T11 vertebral body. IMPRESSION: Bronchiectasis of the right lower lobe. Micro nodules. CT chest follow-up in 1 year if patient is high-risk. Severe compression fracture of the T11 vertebral body. Fleischner Society 2017 Guidelines for incidentally detected indeterminate nodules in persons 35 years of age or older. Single Solid Nodules: 5 mm or smaller nodules need no follow-up in low risk, and [address] follow-up is optional in high risk patients. 6-8 mm nodules have optional [address] follow-up in low risk, and 6-[address] follow-up followed by 18-[address] follow-up if no change in high risk patients. 9 mm or larger nodules should consider CT, PET/CT, or biopsy at 3 months regardless of patient risk. Multiple Solid Nodules: 5 mm or smaller nodules need no follow-up in low risk, and [address] follow-up is optional in high risk patients. 6-8 mm nodules need 3-[address] follow-up followed by an optional 18-[address] follow-up regardless of patient risk. 9 mm or larger nodules should consider 3-[address] follow-up. For low risk 18-24 month follow-up is optional, whereas for high risk it is needed. Single Ground Glass Nodules: 5 mm or smaller nodules need no followup 6 mm and larger nodules need CT at 6-12 months to confirm persistence, then CT every 2 years until 5 years Single Subsolid Nodules: 5 mm or smaller nodules need no followup 6 mm and larger nodules need CT at 3-6 months to confirm persistence. If no change and solid component /T/lt;6 mm, then CT every year until 5 years Multiple Ground Glass or Subsolid Nodules: 5 mm or smaller nodules need CT at 3-6 months. If stable, optional CT at 2 and 4 years. 6 mm or larger nodules need CT at 3-6 months. Subsequent management based on most suspicious nodule This document has been electronically signed by: Anna Durno MD on 06/07/2024 15:35:54
== END 2024-06-07 07:04 | disposition home or self-care (01) ==
LOC: HO.CT 07:03
PROVIDERS: PCP Internal Medicine; Visit Provider Physician Assistant Medical
DX: R05.3 Chronic cough (principal)
CPT/HCPCS: 71250

== ENCOUNTER → 2024-06-07 07:06 | Outpatient (BNV) | payer MEDICARE, SELFPAY | PROVIDERS: PCP Internal Medicine; Visit Provider Nuclear Medicine | DX: J47.9 Bronchiectasis, uncomplicated (principal); R91.8 Other nonspecific abnormal finding of lung field | CPT/HCPCS: 71250 ==

== ENCOUNTER 2024-07-17 10:31 | Outpatient (AMB) | payer MEDICARE, SELFPAY ==
--- NOTE | 2024-07-17 09:12 | A.OFFPC_ITS ---
Vital Signs 07/17/24 10:45 Height 5 ft 1.5 in Weight 135 lb BMI 25.1 BP 128/80 Blood Pressure Location Rt brachial Pulse 81 Pulse Source Pulse Oximeter Temp 97.3 F Pulse Oximetry (%) 98 Intake Visit Reasons: Itching sensation Allergies tetnus Adverse Reaction (Uncoded 07/17/24 10:52) Nausea Medication List - Last Reconciled 07/17/24 by Lisa Sin PA-C cyclobenzaprine 5 mg PO BEDTIME PRN diphenhydramine HCl (Benadryl Allergy) 50 mg PO TID PRN hydrocortisone 2.5% 1 appl topical BID-TID PRN melatonin 10 mg PO BEDTIME PRN prednisone 40 mg (2 x 20 mg) PO DAILY 5 days HPI Itching sensation HPI Details The patient is a 78-year-old female presenting with generalized pruritus and rash. The symptoms initiated around one month prior, primarily affecting the back of her neck, shoulders, and head. No new exposures to medications or products are associated with the condition. Prednisone has been temporarily effective in resolving symptoms, but the itching resumes after stopping the medication. Stress appears to be a triggering factor. The rash emerges occasionally, induced by scratching, but is not consistently visible. Benadryl use has provided partial relief. The impact of this condition has been exacerbated by personal stress factors, particularly related to concerns for her 's recovery from a prior embolism. Social History - Family status: Lives with her , who has health issues following an embolism. Reports increased stress due to 's neediness. - Discusses using product assistance suc h as lotions for the condition. [facility] Medical History (Updated 07/17/24 @ 11:41 by Lisa Sin PA-C) Stress reaction Pruritus Hives Pulmonary nodules Overweight (BMI 25.0-29.9) Follow-up exam, 3-6 months since previous exam History of mammogram (~12/28/21) History of pelvic fracture Central retinal vein occlusion PVCs (premature ventricular contractions) History of menopause Dysfunctional uterine bleeding Iron deficiency anemia Osteoarthritis Osteoporosis Elevated LFTs Mild hypercholesterolemia Chronic cough [place] (hard of hearing) Surgical History History of colonoscopy (~01/25/18) History of dilatation and curettage H/O wrist surgery S/P excision of lipoma S/P lobectomy of lung S/P appendectomy S/P cholecystectomy Social History Patient Tobacco Use Status: Never used Tobacco Current occupational status: disabled Current occupation: rt handed Questionnaire PHQ-9 Over the last 2 weeks, how often have you been bothered by any of the following problems? 1. Little interest or pleasure in doing things: not at all 2. Feeling down, depressed, or hopeless: not at all 3. Trouble falling or staying asleep, or sleeping too much: several days 4. Feeling tired or having little energy: not at all 5. Poor appetite or overeating: not at all 6. Feeling bad about yourself - or that you are a failure or have let yourself or your family down: not at all 7. Trouble concentrating on things, such as reading the newspaper or watching television: not at all 8. Moving or speaking so slowly that other people could have noticed. Or the opposite - being so fidgety or restless that you have been moving around a lot more than usual: not at all 9. Thoughts that you would be better off or of hurting yourself in some way: not at all Total score: 1 Depression Screening Interpretation: Negative Depression Screening Done: Yes 14774 - PHQ-9 Billing: Yes Source: Developed by Drs. Jose Cortez, Alexandrea Street, Satya Reed and colleagues, with an educational geoffrey from [employer]. Thrive Questionnaire I am a: Patient What is your living situation today?: I have a steady place to live Within the past 12 months, did the food you bought not last and you didn't have the money to get more?: Never true Within the past 12 months, did you worry whether your food would run out before you got money to buy more?: Never true Do you have trouble paying for medicines?: No Do you have trouble getting transportation to medical appointments?: No Do you have trouble paying your heating and electricity bill?: No Do you have trouble taking care of your child, family member or friend?: No Do you have trouble with day-to-day activities such as bathing, preparing meals, shopping, managing finances, etc.?: No Are you currently unemployed and looking for a job?: No Are you interested in more education?: No THRIVE Score: 0 AUDIT C Alcohol Use Questionnaire (AUDIT-C) 1. How often do you have a drink containing alcohol?: Monthly or less 2. How many drinks containing alcohol do you have on a typical day when you are drinking?: 1 or 2 3. How often do you have six or more drinks on one occasion?: Never Total Score: 1 Score Reviewed/Action Taken: No TIMOTHY-7 AMB Questionnaire TIMOTHY-7 Date TIMOTHY - 7 assessed: 05/09/24 Source: Developed by Drs. Jose Cortez, Alexandrea Street, Satya Reed and colleagues, with an educational geoffrey from [employer]. Review of Systems Const Details: - Skin: Reports itching predominantly at the neck, scalp, and shoulders. Denies a persistent rash but notes the rash develops upon scratching. - Nervous System: Denies experiencing any symptoms related to neurological issues beyond anxiety-triggered itching. Physical exam (Primary Care) Vital Signs: Last Vital Signs Temp 97.3 F 07/17/24 10:45 Pulse 81 07/17/24 10:45 BP 128/80 07/17/24 10:45 Pulse Ox 98 07/17/24 10:45 Care Plan Goal for BP management: <140/90 at Goal BMI result Body Mass Index 25.1 Tobacco/Smoking Status: Tobacco use Status Patient Tobacco Use Status Never used Tobacco 07/17/24 09:13 PHQ-9: PHQ-9 Score PHQ-9: Total score 1 07/17/24 10:48 Depression Screening Interpretation: Negative Const Other: Appearance: Alert. Oriented X3. No acute distress. Head: Normal external exam. Normocephalic. Atraumatic. Eyes: Pupils are equal, round, and reactive to light. Extraocular movements intact. Conjunctiva and sclera normal. Eyelids normal. Throat: Pharynx normal. Uvula midline. Moist mucous membranes. Neck: Normal inspection. Neck supple. Full range of motion. Cardiovascular: Normal heart rate and rhythm. Respiratory: No respiratory distress. Painless inspiration. Back: No costovertebral angle tenderness. Full range of motion noted. Skin: Skin warm and dry. Normal skin color. Normal skin turgor. However, patient reports itching primarily on the back of the neck, head, and shoulders. Rash appears when itching occurs. Otherwise No rashes/lesions/lacerations noted. Extremities: Extremities exhibit normal range of motion. Neuro: Oriented X 3. No motor deficit. No sensory deficit. Reflexes normal. Coding Level of Care Code Est Pt Level 4 (77905) Complex EM visit Add On G2211 Diagnoses Pruritus L29.9 Stress reaction F43.0 Pulmonary nodules R91.8 Additional Codes PHQ-9 - 48610 - PHQ-9 Billing: Yes ([id number]) Assessment & Plan Assessment & Plan (1) Pruritus: Code(s): L29.9 - Pruritus, unspecified Category: Medical Plan: The patient will transition from prednisone to daily Pebbles to manage generalized pruritus with less sedative effects. A referral to an hat band attacher is made for further assessment. (2) Stress reaction: Code(s): F43.0 - Acute stress reaction Category: Medical Plan: The transient rash upon scratching is being managed with hydrocortisone and stress management strategies; referral to an hat band attacher is to rule out any allergic components. (3) Pulmonary nodules: Comment: Multiple IMPRESSION: Bronchiectasis of the right lower lobe. Micro nodules. CT chest follow-up in 1 year if patient is high-risk. Severe compression fracture of the T11 vertebral body. Code(s): R91.8 - Other nonspecific abnormal finding of lung field Category: Medical Plan: The patient will continue with monitoring the pulmonary nodule under Dr. Miles's care as planned for the coming August appointment. Plan Plan Patient was informed and verbally consented to the use of an ambient scribe for clinic note documentation during this visit. 1. Generalized Pruritus The patient will transition from prednisone to daily Pebbles to manage generalized pruritus with less sedative effects. A referral to an hat band attacher is made for further assessment. 2. Stress-Related Rash The transient rash upon scratching is being managed with hydrocortisone and stress management strategies; referral to an hat band attacher is to rule out any allergic components. 3. Management Of Pulmonary Nodule The patient will continue with monitoring the pulmonary nodule under Dr. Miles's care as planned for the coming August appointment. I discussed with the patient that her generalized pruritus with rash may have an allergic or stress-related component. Pebbles was offered as an alternative to Benadryl to avoid drowsiness while still managing symptoms effectively. I emphasized the importance of stress management and arranged a referral to an hat band attacher for further evaluation. I addressed the patient's concern about her lung health, noting her upcoming follow-up regarding the pulmonary nodule. The possibility of stress contributing to her symptoms was highlighted, and efforts to mitigate these stressors were recommended. Follow-up from the hat band attacher's evaluation and symptoms impacting her daily routine warranted re-evaluation. Orders: Referrals Allergy & Immunology Referral L50.9 - Urticaria, unspecified Medications: New fexofenadine (Pebbles Hives) 180 mg PO DAILY 90 tabs 1RF Refilled cyclobenzaprine 5 mg PO BEDTIME PRN 60 tabs 1RF muscle spasm Discontinued prednisone Discontinued Reason: Doctor's Order 40 mg (2 x 20 mg) PO DAILY 5 days 10 tabs 0RF diphenhydramine HCl (Benadryl Allergy) Discontinued Reason: Doctor's Order 50 mg PO TID PRN 30 tabs 0RF allergy symptoms Patient Instructions: - Start taking Pebbles daily and discontinue Benadryl and prednisone. - Apply hydrocortisone cream as needed for itching. - Attend the hat band attacher appointment once scheduled. - Continue managing stress and avoid known triggers. - Follow up with Dr. Miles regarding the pulmonary nodule in August. - Call the clinic if symptoms worsen or fail to improve after starting Pebbles.
[2024-07-17 10:45] VITALS: BP 128/80; PULSE 81; TEMP 36.3; O2SAT 98; BMI 25.1
== END 2024-07-17 11:08 | disposition home or self-care (01) ==
LOC: HO.HMCSH 10:31
PROVIDERS: PCP Physician Assistant Medical; Visit Provider Physician Assistant Medical
DX: L29.9 Pruritus, unspecified (principal); F43.0 Acute stress reaction; R91.8 Other nonspecific abnormal finding of lung field

== ENCOUNTER → 2024-07-17 10:31 | Outpatient (BNVA) | payer MEDICARE, SELFPAY | PROVIDERS: PCP Physician Assistant Medical; Visit Provider Physician Assistant Medical | DX: L29.9 Pruritus, unspecified (principal); F43.0 Acute stress reaction; R91.8 Other nonspecific abnormal finding of lung field | CPT/HCPCS: 96127; 99212 ==

== ENCOUNTER 2024-08-14 10:34 | Outpatient (AMB) | payer MEDICARE, SELFPAY ==
[2024-08-14 11:17] VITALS: BP 124/70; BMI 24.4
--- NOTE | 2024-08-14 11:17 | MHC.PC.OV ---
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 Required: No Accompanied by: Self / Same As Patient Allergies tetnus Adverse Reaction (Uncoded 08/14/24 11:41) Nausea Medication List - Last Reconciled 08/14/24 by Lisa Sin PA-C azithromycin For 250 mg dose pack: take 500 mg today (day 1), then 250 mg for 4 days (days 2-5) PO codeine-guaifenesin 10-100 mg/5 mL 5 mL PO Q6H PRN cyclobenzaprine 5 mg PO BEDTIME PRN fexofenadine (Pebbles Hives) 180 mg PO DAILY hydrocortisone 2.5% 1 appl topical BID-TID PRN melatonin 10 mg PO BEDTIME PRN nabumetone 500 mg PO BID PRN 90 days Tobacco use date assessed: 07/17/24 Fall risk assessment: No Falls in past year Last assessed Fall Risk: 08/14/24 Dental Screening Dental Screen Date: 08/14/24 Did you have a dental visit in the last 12 months?: Yes Did you have a dental problem in the last 6 months where you did not have access to dental care?: No Was dental information given to patient?: Patient has dentist HPI Chest congestion HPI Details The patient is a 78-year-old female presenting with chest congestion and sore throat. The symptoms began last week and have persisted despite self-care measures. She denies fever and shortness of breath but reports a sore throat and loss of appetite, limiting her dietary intake to soft foods like yogurt. ON LICENSE OF [facility] Medical History Upper respiratory infection Stress reaction Pruritus Hives Pulmonary nodules Overweight (BMI 25.0-29.9) Follow-up exam, 3-6 months since previous exam History of mammogram (~12/28/21) History of pelvic fracture Central retinal vein occlusion PVCs (premature ventricular contractions) History of menopause Dysfunctional uterine bleeding Iron deficiency anemia Osteoarthritis Osteoporosis Elevated LFTs Mild hypercholesterolemia Chronic cough [place] (hard of hearing) Surgical History History of colonoscopy (~01/25/18) History of dilatation and curettage H/O wrist surgery S/P excision of lipoma S/P lobectomy of lung S/P appendectomy S/P cholecystectomy Family History Father No problems noted. Mother No problems noted. Social History Housing: House Patient Tobacco Use Status: Never used Tobacco service: No Current occupational status: disabled Current occupation: rt handed Cognitive needs: No Hearing needs: No Vision needs: No Questionnaire PHQ-9 Over the last 2 weeks, how often have you been bothered by any of the following problems? 1. Little interest or pleasure in doing things: not at all 2. Feeling down, depressed, or hopeless: not at all 3. Trouble falling or staying asleep, or sleeping too much: several days 4. Feeling tired or having little energy: not at all 5. Poor appetite or overeating: not at all 6. Feeling bad about yourself - or that you are a failure or have let yourself or your family down: not at all 7. Trouble concentrating on things, such as reading the newspaper or watching television: not at all 8. Moving or speaking so slowly that other people could have noticed. Or the opposite - being so fidgety or restless that you have been moving around a lot more than usual: not at all 9. Thoughts that you would be better off or of hurting yourself in some way: not at all Total score: 1 Depression Screening Interpretation: Negative Depression Screening Done: Yes 69668 - PHQ-9 Billing: Yes Source: Developed by Drs. Jose Cortez, Alexandrea Street, Satya Reed and colleagues, with an educational geoffrey from [employer]. Thrive Questionnaire Date Thrive assessed: 07/17/24 I am a: Patient What is your living situation today?: I have a steady place to live Within the past 12 months, did the food you bought not last and you didn't have the money to get more?: Never true Within the past 12 months, did you worry whether your food would run out before you got money to buy more?: Never true Do you have trouble paying for medicines?: No Do you have trouble getting transportation to medical appointments?: No Do you have trouble paying your heating and electricity bill?: No Do you have trouble taking care of your child, family member or friend?: No Do you have trouble with day-to-day activities such as bathing, preparing meals, shopping, managing finances, etc.?: No Are you currently unemployed and looking for a job?: No Are you interested in more education?: No THRIVE Score: 0 AUDIT C Alcohol Use Questionnaire (AUDIT-C) 1. How often do you have a drink containing alcohol?: Monthly or less 2. How many drinks containing alcohol do you have on a typical day when you are drinking?: 1 or 2 3. How often do you have six or more drinks on one occasion?: Never Total Score: 1 Score Reviewed/Action Taken: No TIMOTHY-7 AMB Questionnaire TIMOTHY-7 Date TIMOTHY - 7 assessed: 05/09/24 Feeling nervous, anxious, or on edge: 0 = Not at all Not being able to stop or control worryin = Not at all Worrying too much about different things: 0 = Not at all Trouble relaxin = Not at all Being so restless that it is hard to sit still: 0 = Not at all Becoming easily annoyed or irritable: 0 = Not at all Feeling afraid as if something awful might happen: 0 = Not at all Total TIMOTHY-7 score (0-4 normal; 5-9 mild; 10-14 moderate; 15-21 severe): 0 Source: Developed by Drs. Jose Cortez, Alexandrea Street, Satya Reed and colleagues, with an educational geoffrey from [employer]. TIMOTHY-7 Assessment Billing TIMOTHY-7 Assessment Tool: TIMOTHY-7 Assessment 97505 Review of Systems Const Details: - Respiratory: Reports chest congestion. Denies dyspnea. - ENT: Reports sore throat. Denies ear pain. - General: Reports loss of appetite. Denies fever. All systems reviewed & are unremarkable except as noted in HPI and below Physical exam (Primary Care) Vital Signs: Last Vital Signs BP 124/70 08/14/24 11:17 BMI result Body Mass Index 24.4 Tobacco/Smoking Status: Tobacco use Status Tobacco use date assessed 07/17/24 08/14/24 11:22 Patient Tobacco Use Status Never used Tobacco 08/14/24 11:22 PHQ-9: PHQ-9 Score PHQ-9: Total score 1 08/14/24 11:22 Depression Screening Interpretation: Negative Thrive Assessment: Date of Thrive Assessment Date Thrive assessed 07/17/24 08/14/24 11:22 Const Other: Appearance: Alert. Oriented X3. No acute distress. Head: Normal external exam. Normocephalic. Atraumatic. Eyes: Pupils are equal, round, and reactive to light. Extraocular movements intact. Conjunctiva and sclera normal. Eyelids normal. Ears: External auditory canal normal. Tympanic membranes normal. Throat: Pharynx abnormal. Uvula midline. Moist mucous membranes. Throat appears sore and patient reports pain. Neck: Normal inspection. Neck supple. Full range of motion. No adenopathy. No meningeal signs. Cardiovascular: Normal heart rate and rhythm. Heart sound normal. No murmurs noted. Pulses normal throughout. Respiratory: No respiratory distress. Painless inspiration. Breath sounds normal. No wheezes/rales/rhonchi noted. Chest nontender. No accessory muscle usage noted or decreased air movement noted. Abdomen: Soft and nontender. Back: Full range of motion noted. Skin: Skin warm and dry. Normal skin color. Normal skin turgor. No rashes/lesions/lacerations noted. Extremities: Extremities exhibit normal range of motion. Neuro: Oriented X 3. No motor deficit. No sensory deficit. Reflexes normal. Coding Level of Care Code Est Pt Level 4 (46314) Complex EM visit Add On G2211 Diagnoses Upper respiratory infection J06.9 Additional Codes PHQ-9 - 73415 - PHQ-9 Billing: Yes ([id number]) TIMOTHY-7 Assessment Billing - TIMOTHY-7 Assessment Tool: TIMOTHY-7 Assessment 19982 ([id number]) Assessment & Plan Assessment & Plan (1) Upper respiratory infection: Code(s): J06.9 - Acute upper respiratory infection, unspecified Category: Medical Plan: A chest x-ray and COVID swab were ordered to rule out pneumonia and COVID-19. The patient was prescribed a Z-Jevon (azithromycin) for five days and Robitussin with Codeine to manage symptoms and aid sleep. Plan Plan Patient was informed and verbally consented to the use of an ambient scribe for clinic note documentation during this visit. 1. Chest Congestion A chest x-ray and COVID swab were ordered to rule out pneumonia and COVID-19. The patient was prescribed a Z-Jevon (azithromycin) for five days and Robitussin with Codeine to manage symptoms and aid sleep. 2. Sore Throat The sore throat is being managed with symptomatic treatment, including the prescribed cough medicine. I discussed with the patient the plan to perform a chest x-ray and COVID swab to rule out pneumonia and COVID-19. I explained the use of a Z-Jevon and Robitussin with Codeine for symptom management, emphasizing the need to avoid alcohol and operating machinery while taking the medication. I advised the patient to follow up if symptoms persist or worsen, and to report any inability to pass bowel movements within two days. Orders: Orders XR chest 2V Today J06.9 - Acute upper respiratory infection, unspecified SARS-CoV2/FLU/RSV Today R09.89 - Other specified symptoms and signs involving the circulatory and respiratory systems Medications: New azithromycin For 250 mg dose pack: take 500 mg today (day 1), then 250 mg for 4 days (days 2-5) PO 6 tabs 0RF codeine-guaifenesin 10-100 mg/5 mL 5 mL PO Q6H PRN 120 mL 0RF cough Patient Instructions: - Take the prescribed Z-Jevon for five days. - Use Robitussin with Codeine as directed to help with cough and sleep. - Avoid alcohol and operating machinery while taking the cough medicine. - Get a chest x-ray and COVID swab done at the lab. - Contact the clinic if symptoms persist or if unable to pass bowel movements within two days.
== END 2024-08-14 11:41 | disposition home or self-care (01) ==
LOC: HO.HMCSH 10:34
PROVIDERS: PCP Physician Assistant Medical; Visit Provider Physician Assistant Medical
DX: J06.9 Acute upper respiratory infection, unspecified (principal)

== ENCOUNTER 2024-08-14 10:34 | Outpatient (REF) | payer MEDICARE, SELFPAY ==
--- NOTE | ~2024-08-14 | XR_ITS ---
EXAMINATION: XR CHEST CLINICAL INFORMATION: J06.9 - Acute upper respiratory infection, unspecified COMPARISON: August 18, 2022 x-ray and June 07, 2024 CT TECHNIQUE: 2 views of the chest were obtained. FINDINGS: There is a focal opacity in the right lung base on the frontal x-ray, seen posteriorly on the lateral. No signal abnormality is present on recent CT. Heart size is within normal limits. The aorta is tortuous, crossing midline in the lower chest. XR/XR chest 2V IMPRESSION: Suspected acute pneumonia in the posterior base of the right lower lobe. Electronically signed by: Von Reddy MD 08/14/2024 02:17 PM EDT
== END 2024-08-14 10:35 | disposition home or self-care (01) ==
LOC: HO.HMGCX 10:34
PROVIDERS: PCP Physician Assistant Medical; Visit Provider Physician Assistant Medical
DX: J06.9 Acute upper respiratory infection, unspecified (principal)
CPT/HCPCS: 71046; 96127; 99212

== ENCOUNTER → 2024-08-14 14:02 | Outpatient (BNV) | payer MEDICARE, SELFPAY | PROVIDERS: PCP Physician Assistant Medical; Visit Provider Radiology Diagnostic Radiology | DX: J06.9 Acute upper respiratory infection, unspecified (principal) | CPT/HCPCS: 71046 ==

== ENCOUNTER 2024-08-27 10:25 | Outpatient (AMB) | payer MEDICARE, SELFPAY ==
[2024-08-27 10:25] VITALS: BP 140/76; PULSE 85; O2SAT 97; BMI 24.4
--- NOTE | 2024-08-27 10:25 | A.OFFVIS_ITS ---
Vital Signs 08/27/24 10:25 Height 5 ft 1.5 in Weight 131 lb 2.801 oz BMI 24.4 BP 140/76 H Blood Pressure Location Lt brachial Position Sitting Pulse 85 Pulse Source Pulse Oximeter Pulse Oximetry (%) 97 Oxygen Delivery Method Room Air Intake Visit Reasons: Abnormal CT scan Oncology Patient Navigator Required: No Accompanied by: Spouse Allergies tetnus Adverse Reaction (Uncoded 08/14/24 11:41) Nausea HPI Comments Details: The patient is here for pulmonary evaluation. The patient is a 79 year woman here with a normal CT scan of the chest. Apparently the patient toddler had significant respiratory disease. She was evaluated in [facility]. She did require lung resection back at the age of 4 and she was told that she was going to be incapacitated from a respiratory status. However, the patient did very well. She has episodes of bronchitis typically like once a year. More recently early spring she started developing worsening respiratory symptoms and cough. She went to urgent Care. She was treated. She does not use any inhalers. Based on her history and her respiratory symptoms she did undergo a CT scan of the chest which I personally reviewed with her. She does have some bronchiectatic changes in the right lower lobe where she had a resection. She also has some scarring on that side likely from postoperative changes but can not really see the surgical line. The area healed very well. She also has pulmonary nodules subcentimeter in size and likely some mucus plugging as well. We talked about bronchiectasis and likely that she had a focal area of severe bronchiectasis the lead to recurrent infections and likely had that resected. The residual bronchiectasis is minimal and does have some mucus plugging noted. Therefore we did talk about CPT with an Acapella valve. She is going to get 1 through the mail she is going to use it regularly. She still has not recovered completely from her bronchitis episodes. Sometimes she coughs although nonproductive in nature. Sometimes she feels some chest tightness although no wheezing. I did recommend a inhaler that she can use as needed but she would like to hold off for now. She can try the [id number] cough medication and also the Acapella valve. Will also plan to have pulmonary function studies sometime in the fall when she returns. If she develops any worsening respiratory symptoms prior to that and she wants to try the inhaler she can always call and I can send her went to the pharmacy. We also did talk about vaccines. She needs to get a pneumonia vaccine her Tdap updated and also should get the RSV vaccine in the fall. She also get the flu shot in the other vaccines as needed. [facility] Medical History (Updated 08/27/24 @ 22:13 by Yobani Miles MD) Bronchiectasis Upper respiratory infection Stress reaction Pruritus Hives Pulmonary nodules Overweight (BMI 25.0-29.9) Follow-up exam, 3-6 months since previous exam History of mammogram (~12/28/21) History of pelvic fracture Central retinal vein occlusion PVCs (premature ventricular contractions) History of menopause Dysfunctional uterine bleeding Iron deficiency anemia Osteoarthritis Osteoporosis Elevated LFTs Mild hypercholesterolemia Chronic cough [place] (hard of hearing) Surgical History History of colonoscopy (~01/25/18) History of dilatation and curettage H/O wrist surgery S/P excision of lipoma S/P lobectomy of lung S/P appendectomy S/P cholecystectomy Family History Father No problems noted. Mother No problems noted. Social History Housing: House Patient Tobacco Use Status: Never used Tobacco service: No Current occupational status: disabled Current occupation: rt handed Cognitive needs: No Hearing needs: No Vision needs: No Review of Systems Const Denies fever(s) ENT Reports nasal congestion Card Denies chest pain Resp Reports cough and Denies wheezing GI Reports no additional complaints Musc Reports no additional complaints Skin/Breast Denies rash Neuro Reports no additional complaints Noe/Lymph Reports no additional complaints Aller/Immun Denies wheezing Physical Exam Vital Signs: Last Vital Signs Pulse 85 08/27/24 10:25 BP 140/76 H 08/27/24 10:25 Pulse Ox 97 08/27/24 10:25 Oxygen Delivery Method Room Air 08/27/24 10:25 BMI result Body Mass Index 24.4 Const General: comfortable HEENT Head: Yes normocephalic Neck Neck: Yes supple Chest Chest palpation & inspection: normal inspection of the chest Resp Effort & Inspection: normal respiratory effort Auscultation: diminished lung sounds Cardio Heart sounds: S1 normal heart sound present and S2 normal heart sound present GI Palpation (GI): Soft to palpation Skin General skin exam: no rashes or lesions noted Extrem General: Yes no clubbing, cyanosis or edema Assessment & Plan Assessment & Plan (1) Chronic cough: Code(s): R05.3 - Chronic cough Category: Medical (2) Pulmonary nodules: Code(s): R91.8 - Other nonspecific abnormal finding of lung field Category: Medical (3) Bronchiectasis: Code(s): J47.9 - Bronchiectasis, uncomplicated Category: Medical Qualifiers: Bronchiectasis type: uncomplicated Qualified Code(s): J47.9 - Bronchiectasis, uncomplicated Plan start CPT with acapella valve PFTs Repeat CT chest 05/2025 F/U 3-4 months Orders: Orders PFT pulmonary function test Today J47.9 - Bronchiectasis, uncomplicated CT chest wo IV con 05/15/25 J47.9 - Bronchiectasis, uncomplicated, R91.8 - Other nonspecific abnormal finding of lung field Coding Level of Care Code New Pt Level 4 (35033) Diagnoses Chronic cough R05.3 Pulmonary nodules R91.8 Bronchiectasis without complication J47.9 Bronchiectasis type: uncomplicated Time Spent (min) 40
== END 2024-08-27 11:08 | disposition home or self-care (01) ==
LOC: HO.HPS 10:25
PROVIDERS: PCP Physician Assistant Medical; Referring Provider Physician Assistant Medical; Visit Provider Hospitalist
DX: R05.3 Chronic cough (principal); R91.8 Other nonspecific abnormal finding of lung field; J47.9 Bronchiectasis, uncomplicated
CPT/HCPCS: 99204

== ENCOUNTER → 2024-08-27 10:25 | Outpatient (BNVA) | payer MEDICARE, SELFPAY | PROVIDERS: PCP Physician Assistant Medical; Referring Provider Physician Assistant Medical; Visit Provider Hospitalist | DX: R05.3 Chronic cough (principal); R91.8 Other nonspecific abnormal finding of lung field; J47.9 Bronchiectasis, uncomplicated | CPT/HCPCS: 99202 ==

== ENCOUNTER 2024-11-07 07:16 | Outpatient (REF) | payer MEDICARE, SELFPAY ==
--- OUTSIDE RECORDS SUMMARY | 2024-11-07 07:20 | XMS_ITS | Encounter Summary ---
Author Organization [facility] Address [address] [address] [place] [phone] Phone Care Team Providers Care Snagger Name Role Phone Jose Cuadra DO Primary Care Provider [phone] Encounter Details Date Type Department Care Team (Latest Contact Info) Description 12/22/2021 Transcribe Orders Virtual Department [address] [place] [address] Jose Cuadra DO [address] [place] [address] Breast screening (Primary Dx) Social History Tobacco Use Types Packs/Day Years Used Date Smoking Tobacco: Never Assessed Comments No Sex and Gender Information Value Date Recorded Sex Assigned at Not on file Legal Sex Female 10:06 PM EDT Gender Identity Not on file Sexual Orientation Not on file documented as of this encounter Plan of Treatment Not on file documented as of this encounter Results * BI MAMMOGRAM SCREENING WITH TOMOSYNTHESIS WITH CAD (BILATERAL) (12/28/2021 3:48 PM EST) Anatomical Region Laterality Modality Breast Left, Breast Right, Breast Bilateral Bila teral Mammography 12/31/2021 9:56 AM EST Impressions 12/31/2021 10:33 AM EST No mammographic signs of malignancy. Annual screening is recommended. BI-RADS CATEGORY: 2 - Benign finding. DENSITY: There are scattered fibroglandular densities. Narrative 12/31/2021 10:33 AM EST Bilateral mammography is performed in conjunction with computed aided detection. 3-D tomography along with 2-D C view imaging was also performed. Comparison made to previous dated as far back as 01/01/2003 and as recent as 01/09/2018. No suspicious masses, areas of architectural distortion or suspicious microcalcifications. A few bilateral skin calcifications are stable. Procedure Note Rikki Barahona MD - 12/31/2021 Bilateral mammography is performed in conjunction with computed aideddetection. 3-D tomography along with 2-D C view imaging was alsoperformed. Comparison made to previous dated as far back as 01/01/2003 andas recent as 01/09/2018. No suspicious masses, areas of architectural distortion or suspiciousmicrocalcifications. A few bilateral skin calcifications are stable. IMPRESSION: No mammographic signs of malignancy. Annual screening is recommended. BI-RADS CATEGORY: 2 - Benign finding. DENSITY: There are scattered fibroglandular densities. Jose Cuadra DO IMG MG EXAMS Final Result documented in this encounter Visit Diagnoses Diagnosis Breast screening- Primary Breast screening, unspecified Breast screening Breast screening, unspecified documented in this encounter Care Teams Snagger Relationship Specialty Start Date End Date Jose Cuadra DO [address] [place] [id number] PCP - General 02/17/17 documented as of this encounter Additional Source Comments The information contained in this document represents components of the legal health record. It is not the complete legal health record.[facility]
--- OUTSIDE RECORDS SUMMARY | 2024-11-07 07:20 | XMS_ITS | Encounter Summary ---
Author Organization [facility] Address [address] [place] [phone] Phone Care Team Providers Care Boiler Shop Supervisor Name Role Phone Jose Cuadra DO Unavailable Chito Han MD Unavailable [phone] Jose Cuadra DO Primary Care Provider [phone] Encounter Details Date Type Department Care Team (Late st Contact Info) Description 12/22/2017 Ancillary Orders Virtual Department [address] [place] [address] Jose Cuadra DO [address] [place] [phone] Breast screening Social History Tobacco Use Types Packs/Day Years Used Date Smoking Tobacco: Never Assessed Comments Unknown Sex and Gender Information Value Date Recorded Sex Assigned at Not on file Legal Sex Female 10:06 PM EDT Gender Identity Not on file Sexual Orientation Not on file documented as of this encounter Plan of Treatment Not on file documented as of this encounter Results * BI MAMMOGRAM SCREENING WITH TOMOSYNTHESIS WITH CAD (BILATERAL) (01/09/2018 2:58 PM EST) Anatomical Region Laterality Modality Breast Left, Breast Right, Breast Bilateral Bila teral Mammography 01/09/2018 2:56 PM EST Impressions 01/09/2018 3:18 PM EST No mammographic change indicative of malignancy. Routine screening is recommended. BI-RADS CATEGORY: 1 - Negative. DENSITY: There are scattered fibroglandular densities. POS -CDHMAMA Edited by: Sandra Dumas on 01/09/2018 3:01 PM Narrative 01/09/2018 3:18 PM EST Bilateral full-field digital screening mammography is obtained and read in conjunction with computer-aided detection. Tomosynthesis as well as 2-D C view imaging of both breasts in two planes also obtained. Comparison made to multiple prior, most recent 01/22/2016, and most remote 07/02/2011. No dominant mass, architectural distortion, worrisome asymmetry, or suspicious calcification is identified. No skin or nipple finding of concern is appreciated. Procedure Note Reed Lazaro MD - 01/09/2018 Bilateral full-field digital screening mammography is obtained and read inconjunction with computer-aided detection. Tomosynthesis as well as 2-D Cview imaging of both breasts in two planes also obtained. Comparison madeto multiple prior, most recent 01/22/2016, and most remote 07/02/2011. No dominant mass, architectural distortion, worrisome asymmetry, orsuspicious calcification is identified. No skin or nipple finding ofconcern is appreciated. IMPRESSION: No mammographic change indicative of malignancy. Routine screening isrecommended. BI-RADS CATEGORY: 1 - Negative. DENSITY: There are scattered fibroglandular densities. POS -CDHMAMA Edited by: Sandra Dumas on 01/09/2018 3:01 PM Jose Cuadra DO IMG MG EXAMS Final Result documented in this encounter Visit Diagnoses Diagnosis Breast screening Breast screening, unspecified Breast screening Breast screening, unspecified documented in this encounter Care Teams Boiler Shop Supervisor Relationship Specialty Start Date End Date Jose Cuadra DO [address] [place] [id number] PCP - General 02/17/17 Jose Cuadra DO [address] [place] [id number] Historical LMR Provider 12/01/16 2 Chito Han MD [address] [place] [address] Historical LMR Provider 12/01/16 2 documented as of this encounter Additional Source Comments The information contained in this document represents components of the legal health record. It is not the complete legal health record.[facility]
--- OUTSIDE RECORDS SUMMARY | 2024-11-07 07:20 | XMS_ITS | Clinical Summary ---
Author Organization [facility] Address [address] [place] [address] Phone Care Team Providers Care Jewel Oliving Machine Operator Name Role Phone Jose Cuadra DO Primary Care Provider Medications Medication-Free Text multivitamin Active CALCIUM ORAL 1 tab Oral Active Family History Medical History Relation Comments CV disease Father 2 Diabetes mellitus Father 2 CV disease Mother 2 Stroke Mother 2 Cancer Paternal Aunt 2 Diabetes mellitus Paternal Grandmother 2 Relation Status Comments Father 1 Father 2 Mother 1 Mother 2 Paternal Aunt 1 Paternal Aunt 2 Paternal Grandmother 1 Paternal Grandmother 2 Social History Tobacco Use Types Packs/Day Years Used Date Smoking Tobacco: Never Assessed Education Answer Date Recorded Are you interested in more education? Not on kaye e 06/11/2022 Are you concerned about learning? Not on file 06/11/2022 No 06/11/2022 No 06/11/2022 Digital Access Answer Date Recorded No 07/12/2022 No 07/12/2022 Reliable internet access at home? Not on file 07/12/2022 Device with a working camera? Not on file Comments No Sex and Gender Information Value Date Recorded Sex Assigned at Not on file Legal Sex Female 10:06 PM EDT Gender Identity Not on file Sexual Orientation Not on file Last Filed Vital Signs Vital Sign Reading Time Taken Comments Blood Pressure 122/62 02/19/2016 11:37 AM EST Pulse 72 02/19/2016 11:37 AM EST Temperature - - Respiratory Rate - - Oxygen Saturation - - Inhaled Oxygen Concentration - - Weight 56.2 kg (123 lb 12.8 oz) 017 11:37 AM EST Height 159.4 cm (5' 2.75 ) 02/19/2016 1 1:37 AM EST Body Mass Index 22.11 02/19/2016 11:37 AM EST Plan of Treatment Not on file Medical Devices Not on file Insurance MEDICARE PART A & B [employer] MEDEX SUPPLEMENT MEDICARE PART A & B [employer] MED[employer] SUPPLEMENT MEDICARE PART A & B [facility] MEDEX SUPPLEMENT MEDICARE PART A & B [employer] MEDEX SUPPLEMENT MEDICARE PART A & B [employer] MED[employer] SUPPLEMENT MEDICARE PART A & B [employer] MED[employer] SUPPLEMENT MEDICARE PART A & B [employer] MED[employer] SUPPLEMENT MEDICARE PART A & B [employer] MED[employer] SUPPLEMENT MEDICARE PART A & B [employer] MEDEX SUPPLEMENT Care Teams Jewel Oliving Machine Operator Relationship Specialty Start Date End Date Jose Cuadra DO [address] [place] [id number] PCP - General 02/17/17 Additional Source Comments The information contained in this document represents components of the legal health record. It is not the complete legal health record.[facility]
--- OUTSIDE RECORDS SUMMARY | 2024-11-07 07:20 | XMS_ITS | Encounter Summary ---
Author Organization [facility] Address [address] [facility] [address] [place] [address] Phone Care Team Providers Care Bone Density Technician Name Role Phone Jose Cuadra DO Primary Care Provider Encounter Details Date Type Department Care Team (Late st Contact Info) Description 12/22/2021 Procedure Pass [address] [place] [address] Social History Tobacco Use Types Packs/Day Years Used Date Smoking Tobacco: Never Assessed Comments No Sex and Gender Information Value Date Recorded Sex Assigned at Not on file Legal Sex Female 10:06 PM EDT Gender Identity Not on file Sexual Orientation Not on file documented as of this encounter Plan of Treatment Not on file documented as of this encounter Visit Diagnoses Not on filedocumented in this encounter Care Teams Bone Density Technician Relationship Specialty Start Date End Date Jose Cuadra DO [address] [place] [id number] PCP - General 02/17/17 documented as of this encounter Additional Source Comments The information contained in this document represents components of the legal health record. It is not the complete legal health record.[facility]
[2024-11-07 10:28] LABS: MANUAL DIFF FLAG NO
[2024-11-07 10:37] LABS: Hematocrit 42.4 % (37.0-47.0); Hemoglobin 13.6 g/dl (12.0-16.0); Imm Gran Abs Auto 0.01 X10*3/uL (0.00-0.03); Imm Gran Pct Auto 0.2 % (0.0-0.4); Lymphocytes Absolute Auto 1.6 X10*3/uL (1.2-4.9); Mean Corpuscular HGB Conc 32.1 g/dl (31.0-35.0); Mean Corpuscular Hemoglobin 28.0 pg (27.0-33.0); Mean Corpuscular Volume 87.2 fL (80.0-98.0); NRBC Abs Auto 0.000 X10*3/uL (0.0-0.012); NRBC Pct Auto 0.0 /100WBC (0.0-0.2); Platelet Count 212 X10*3/uL (160-400); Red Blood Count 4.86 X10*6/uL (4.20-5.50); White Blood Count 4.8 X10*3/uL (4.8-10.8)
[2024-11-07 10:50] LABS: Hemoglobin A1C 119.9214 umol/L
--- NOTE | 2024-11-07 11:02 | PFT_ITS ---
Flows: FEV1: 93 % of predicted at 1.69 L FVC: 94 % of predicted at 2.22 L FEV1/FVC: 76 % Bronchodilator response: Present in small to medium airways only Volumes: Total lung capacity: 91 % of predicted at 4.08 L Residual volume: 88 % of predicted at 1.73 L Slow vital capacity: 96 % of predicted at 2.35 L Expiratory reserve volume: 107 % of predicted at 0.62 L Diffusion capacity: Mildly decreased, corrects to normal after adjustment for alveolar ventilation. Impression: No obstructive or restrictive ventilatory defect. Bronchodilator response is present in small to medium airways only. Isolated defect in diffusion capacity suggests pulmonary edema. Clinical correlation is advised. MTDD
[2024-11-07 11:39] LABS: Alanine Aminotransferase 65 U/L (0-31); Albumin Level 4.4 g/dL (3.5-5.0); Alkaline Phosphatase 73 U/L (39-117); Anion Gap 11 (12-20); Aspartate Amino Transferase 44 U/L (5-31); Blood Urea Nitrogen 25 mg/dL (9-16); Calcium 9.6 mg/dL (8.4-10.2); Carbon Dioxide 25 mmol/L (22-29); Chloride 111 mmol/L (96-108); Cholesterol 205 mg/dL (<200); Estimated Glomerular Filt Rate > 60; HDL Cholesterol 45 mg/dL (>40); Magnesium 2.2 mg/dL (1.6-2.6); Potassium 3.9 mmol/L (3.3-5.1); Sodium 143 mmol/L (135-145); Total Protein 6.6 g/dL (6.5-8.0); Triglycerides 63 mg/dL (<150)
[2024-11-07 11:40] VITALS: PULSE 78; O2SAT 97
[2024-11-07 12:01] LABS: Folate 7.8 ng/mL (> or = 4.0); Vitamin B12 345 pg/mL (200-900)
[2024-11-07 12:24] LABS: Free T4 (Free Thyroxine) 1.04 ng/dL (0.71-1.85)
== END 2024-11-07 07:17 | disposition home or self-care (01) ==
LOC: HO.HMGCX 07:16
PROVIDERS: PCP Physician Assistant Medical; Referring Provider Physician Assistant Medical; Visit Provider Hospitalist
DX: Z00.00 Encounter for general adult medical examination without abnormal findings (principal); J47.9 Bronchiectasis, uncomplicated; Z13.1 Encounter for screening for diabetes mellitus; Z13.6 Encounter for screening for cardiovascular disorders; Z13.29 Encounter for screening for other suspected endocrine disorder
CPT/HCPCS: 36415; 80053; 80061; 80076; 82248; 82306; 82607; 82746; 83036; 83735; 84425; 84439; 84443; 84590; 84630; 85025; 85652; 86140; 94010; 94727; 94729

== ENCOUNTER → 2024-11-07 11:02 | Outpatient (BNV) | payer MEDICARE, SELFPAY | PROVIDERS: PCP Physician Assistant Medical; Referring Provider Physician Assistant Medical; Visit Provider Internal Medicine Pulmonary Disease | DX: J47.9 Bronchiectasis, uncomplicated (principal) | CPT/HCPCS: 94060; 94727; 94729 ==

== ENCOUNTER 2024-11-12 12:58 | Outpatient (AMB) | payer MEDICARE, SELFPAY ==
[2024-11-12 13:14] VITALS: BP 146/93; PULSE 89; TEMP 36.3; O2SAT 98; BMI 24.2
--- NOTE | 2024-11-12 13:14 | A.OFFPC_ITS ---
Vital Signs 11/12/24 13:14 Height 5 ft 1.69 in Weight 131 lb BMI 24.2 BP 146/93 H Blood Pressure Location Lt brachial Position Sitting Pulse 89 Pulse Source Pulse Oximeter Temp 97.3 F Temp Source Temporal Artery Scan Pulse Oximetry (%) 98 Oxygen Delivery Method Room Air Intake Visit Reasons: preop Intake Note: cataract surgery 11/29/24 & 12/06/24 Theater Projectionist Required: No Accompanied by: Spouse Allergies tetnus Adverse Reaction (Uncoded 11/12/24 15:10) Nausea Medication List - Last Reconciled 11/12/24 by Lisa Sin PA-C melatonin 10 mg PO BEDTIME PRN nabumetone 500 mg PO BID PRN 90 days Tobacco use date assessed: 11/12/24 Fall risk assessment: No Falls in past year Last assessed Fall Risk: 11/12/24 Dental Screening Dental Screen Date: 11/12/24 Did you have a dental visit in the last 12 months?: Yes Did you have a dental problem in the last 6 months where you did not have access to dental care?: No Was dental information given to patient?: Patient has dentist HPI preop HPI Details The patient is a 79-year-old female presenting with a preoperative evaluation for cataract surgery. She has a history of premature ventricular contractions and mild hypercholesterolemia, which have been monitored over time. Her medical history includes osteoporosis and central retinal vein occlusion, both of which have been addressed in previous consultations. The patient has experienced elevated liver enzymes and iron deficiency anemia, with recent improvements noted in her lab results. Chronic back pain due to a compression fracture is managed with NSAIDs, and she is under pulmonology care for pulmonary nodules and bronchiectasis. She has a resolved history of dysfunctional uterine bleeding and a past pelvic fracture contributing to osteoarthritis. The patient also reports a history of stress reactions and hearing difficulties. [facility] Medical History (Updated 11/12/24 @ 15:16 by Lisa Sin PA-C) History of hearing problem Cataract Pre-op evaluation Bronchiectasis Stress reaction Pulmonary nodules History of mammogram (~12/28/21) History of pelvic fracture Central retinal vein occlusion PVCs (premature ventricular contractions) History of menopause Osteoarthritis Elevated LFTs Mild hypercholesterolemia Chronic cough INUPIAT (hard of hearing) Surgical History History of colonoscopy (~01/25/18) History of dilatation and curettage H/O wrist surgery S/P excision of lipoma S/P lobectomy of lung S/P appendectomy S/P cholecystectomy Family History Father No problems noted. Mother No problems noted. Social History Housing: House Patient Tobacco Use Status: Never used Tobacco service: No Current occupational status: retired and disabled Current occupation: rt handed Cognitive needs: No Hearing needs: No Vision needs: Yes (rx glasses) Questionnaire PHQ-9 Over the last 2 weeks, how often have you been bothered by any of the following problems? 1. Little interest or pleasure in doing things: not at all 2. Feeling down, depressed, or hopeless: not at all 3. Trouble falling or staying asleep, or sleeping too much: several days 4. Feeling tired or having little energy: not at all 5. Poor appetite or overeating: not at all 6. Feeling bad about yourself - or that you are a failure or have let yourself or your family down: not at all 7. Trouble concentrating on things, such as reading the newspaper or watching television: not at all 8. Moving or speaking so slowly that other people could have noticed. Or the opposite - being so fidgety or restless that you have been moving around a lot more than usual: not at all 9. Thoughts that you would be better off or of hurting yourself in some way: not at all Total score: 1 Depression Screening Interpretation: Negative Depression Screening Done: Yes 14924 - PHQ-9 Billing: Yes Source: Developed by Drs. Jose Cortez, Alexandrea Street, Satya Reed and colleagues, with an educational geoffrey from [employer]. Thrive Questionnaire Date Thrive assessed: 11/12/24 I am a: Patient What is your living situation today?: I have a steady place to live Within the past 12 months, did the food you bought not last and you didn't have the money to get more?: Never true Within the past 12 months, did you worry whether your food would run out before you got money to buy more?: Never true Do you have trouble paying for medicines?: No Do you have trouble getting transportation to medical appointments?: No Do you have trouble paying your heating and electricity bill?: No Do you have trouble taking care of your child, family member or friend?: No Do you have trouble with day-to-day activities such as bathing, preparing meals, shopping, managing finances, etc.?: No Are you currently unemployed and looking for a job?: No Are you interested in more education?: No THRIVE Score: 0 AUDIT C Alcohol Use Questionnaire (AUDIT-C) 1. How often do you have a drink containing alcohol?: Never Total Score: 0 Score Reviewed/Action Taken: No TIMOTHY-7 AMB Questionnaire TIMOTHY-7 Date TIMOTHY - 7 assessed: 11/12/24 Feeling nervous, anxious, or on edge: 0 = Not at all Not being able to stop or control worryin = Not at all Worrying too much about different things: 0 = Not at all Trouble relaxin = Not at all Being so restless that it is hard to sit still: 0 = Not at all Becoming easily annoyed or irritable: 0 = Not at all Feeling afraid as if something awful might happen: 0 = Not at all Total TIMOTHY-7 score (0-4 normal; 5-9 mild; 10-14 moderate; 15-21 severe): 0 Source: Developed by Drs. Jose Cortez, Alexandrea Street, Satya Reed and colleagues, with an educational geoffrey from [employer]. TIMOTHY-7 Assessment Billing TIMOTHY-7 Assessment Tool: TIMOTHY-7 Assessment 33205 Review of Systems Const Details: - Cardiovascular: Denies chest pain or palpitations. - Respiratory: Reports chronic cough. Denies dyspnea or wheezing. - Musculoskeletal: Reports chronic back pain. - Neurological: Denies headaches or dizziness. - Endocrine: Denies thyroid dysfunction symptoms. - Hematologic: Denies easy bruising or bleeding. - General: Denies fever or weight loss. All systems reviewed & are unremarkable except as noted in HPI and below Physical exam (Primary Care) Vital Signs: Last Vital Signs Temp 97.3 F 11/12/24 13:14 Pulse 89 11/12/24 13:14 BP 146/93 H 11/12/24 13:14 Pulse Ox 98 11/12/24 13:14 Oxygen Delivery Method Room Air 11/12/24 13:14 Care Plan Goal for BP management: <140/90 at Goal BMI result Body Mass Index 24.2 Normal BMI Tobacco/Smoking Status: Tobacco use Status Tobacco use date assessed 11/12/24 11/12/24 13:18 Patient Tobacco Use Status Never used Tobacco 11/12/24 13:18 PHQ-9: PHQ-9 Score PHQ-9: Total score 1 11/12/24 15:35 Depression Screening Interpretation: Negative Thrive Assessment: Date of Thrive Assessment Date Thrive assessed 11/12/24 11/12/24 13:18 Const Other: Appearance: Alert. Oriented X3. No acute distress. Head: Normal external exam. Normocephalic. Atraumatic. Eyes: Pupils are equal, round, and reactive to light. Extraocular movements intact. Conjunctiva and sclera normal. Eyelids normal. Throat: Pharynx normal. Uvula midline. Moist mucous membranes. Neck: Normal inspection. Neck supple. Full range of motion. Cardiovascular: Normal heart rate and rhythm. Heart sound normal. No murmurs noted. Pulses normal throughout. Respiratory: No respiratory distress. Painless inspiration. Breath sounds normal. No wheezes/rales/rhonchi noted. No accessory muscle usage noted or decreased air movement noted. Back: Full range of motion noted. Skin: Skin warm and dry. Normal skin color. Extremities: Extremities exhibit normal range of motion. Neuro: Oriented X 3. No motor deficit. No sensory deficit. Reflexes normal. Office Procedures Flu Questionnaire Does the patient have a severe egg allergy?: No Does the patient have severe life threatening allergies?: No Does the patient have a fever or illness today?: No Has the patient ever had Guillain-Norcross Syndrome?: No Has the patient ever had any past reaction to a flu shot?: No Immunizations Fluarix [id number] (PF) 45 mcg (15 mcg x 3)/0.5 mL IM syringe Performing Provider: Lisa Sin PA-C [facility] Administered by: Bibi Morales CMA on 11/12/24 13:25 Dose Route Admin Location Dispensed Lot Number Expiration Date [facility] Diplomatic Interpreter/Translator 0.5 mL IM Right Deltoid 0.5 mL [id number] 08/13/25 [id number] [employer] VIS Given Date VIS Provided VIS Publication Date 11/12/24 Single Vaccine 24 Eligibility Eligibility Date Funding Source Not VF Eligible 11/12/24 Private Results Reviewed Results Reviewed: - Labs: CBC normal, no anemia; platelet count normal; white blood cell count normal; potassium, sodium normal; chloride slightly elevated at 111 mmol/L; BUN 25 mg/dL; creatinine normal; GFR >60 mL/min; hemoglobin A1c 5.3%; magnesium normal; AST 44 U/L; ALT 65 U/L; cholesterol 205 mg/dL; LDL 148 mg/dL; HDL 45 mg/dL; vitamin D, folate normal; TSH 4.81 mIU/L; free T4 normal; zinc normal. Coding Level of Care Code Est Pt Level 4 (74743) Complex EM visit Add On G2211 Diagnoses Pre-op evaluation Z01.818 Cataract H26.9 PVCs (premature ventricular contractions) I49.3 Mild hypercholesterolemia E78.00 Central retinal vein occlusion H34.8192 Elevated LFTs R79.89 Acute bilateral low back pain without sciatica M54.50 Back pain laterality: bilateral Back pain location: low back pain Chronicity: acute Sciatica presence: without sciatica Pulmonary nodules R91.8 Bronchiectasis without complication J47.9 Bronchiectasis type: uncomplicated Chronic cough R05.3 History of pelvic fracture Z87.81 Osteoarthritis M19.90 Stress reaction F43.0 History of hearing problem Z86.69 Additional Codes TIMOTHY-7 Assessment Billing - TIMOTHY-7 Assessment Tool: TIMOTHY-7 Assessment 63789 ([id number]) PHQ-9 - 08099 - PHQ-9 Billing: Yes ([id number]) Time Spent (min) 55 Assessment & Plan Assessment & Plan (1) Pre-op evaluation: Code(s): Z01.818 - Encounter for other preprocedural examination Category: Medical Plan: Patient having cataract surgery to the left eye on November 29 and the right eye on December [address] Montague. (2) Cataract: Code(s): H26.9 - Unspecified cataract Category: Medical Plan: The patient is scheduled for cataract surgery on the left eye on November 29, with a follow-up procedure on the right eye on December 06. Preoperative clearance includes recent blood work and an EKG to be performed at the [facility]. The patient is advised to stop taking NSAIDs and melatonin seven days prior to surgery to avoid complications with anesthesia. (3) PVCs (premature ventricular contractions): Code(s): I49.3 - Ventricular premature depolarization Category: Medical Plan: The patient has a history of premature ventricular contractions, which are being monitored as part of her cardiac health management. (4) Mild hypercholesterolemia: Code(s): E78.00 - Pure hypercholesterolemia, unspecified Category: Medical Plan: The patient's cholesterol levels are slightly elevated, with recent improvements noted in her LDL and total cholesterol levels. (5) Central retinal vein occlusion: Comment: Incomplete Code(s): H34.8192 - Central retinal vein occlusion, unspecified eye, stable Category: Medical Plan: The patient has a history of central retinal vein occlusion, which has been noted in her medical records. (6) Elevated LFTs: Code(s): R79.89 - Other specified abnormal findings of blood chemistry Category: Medical Plan: The patient has elevated liver enzymes, specifically AST and ALT, which have shown improvement in recent tests. (7) Back pain: Code(s): M54.9 - Dorsalgia, unspecified Category: Medical Qualifiers: Back pain laterality: bilateral Back pain location: low back pain Chronicity: acute Sciatica presence: without sciatica Qualified Code(s): M54.50 - Low back pain, unspecified Plan: The patient experiences chronic back pain due to a compression fracture and uses NSAIDs for pain management. (8) Pulmonary nodules: Code(s): R91.8 - Other nonspecific abnormal finding of lung field Category: Medical Plan: The patient has pulmonary nodules, which are being monitored by pulmonology. (9) Bronchiectasis: Code(s): J47.9 - Bronchiectasis, uncomplicated Category: Medical Qualifiers: Bronchiectasis type: uncomplicated Qualified Code(s): J47.9 - Bronchiectasis, uncomplicated Plan: The patient has bronchiectasis, which is part of her respiratory health management. Has follow-up with pulmonology. Condition is chronic and stable continue to monitor. (10) Chronic cough: Code(s): R05.3 - Chronic cough Category: Medical Plan: The patient reports a chronic cough, which is being monitored as part of her respiratory health. Has follow-up with pulmonology. Condition is chronic and stable continue to monitor. (11) History of pelvic fracture: Code(s): Z87.81 - Personal history of (healed) traumatic fracture Category: Medical Plan: The patient has a history of a pelvic fracture, contributing to her osteoarthritis and chronic pain. (12) Osteoarthritis: Code(s): M19.90 - Unspecified osteoarthritis, unspecified site Category: Medical Plan: The patient has osteoarthritis, which is managed as part of her musculoskeletal health. (13) Stress reaction: Code(s): F43.0 - Acute stress reaction Category: Medical Plan: The patient has a history of stress reactions, which are noted in her medical records. (14) History of hearing problem: Code(s): Z86.69 - Personal history of other diseases of the nervous system and sense organs Category: Medical Plan: The patient is hard of hearing, which affects her daily communication. Plan Plan Patient was informed and verbally consented to the use of an ambient scribe for clinic note documentation during this visit. 1. Cataract The patient is scheduled for cataract surgery on the left eye on November 29, with a follow-up procedure on the right eye on December 06. Preoperative clearance includes recent blood work and an EKG to be performed at the [facility]. The patient is advised to stop taking NSAIDs and melatonin seven days prior to surgery to avoid complications with anesthesia. 2. Premature Ventricular Contractions The patient has a history of premature ventricular contractions, which are being monitored as part of her cardiac health management. 3. Mild Hypercholesterolemia The patient's cholesterol levels are slightly elevated, with recent improvements noted in her LDL and total cholesterol levels. 4. Osteoporosis The patient has a history of osteoporosis, which has been managed over time with appropriate interventions. 5. Central Retinal Vein Occlusion The patient has a history of central retinal vein occlusion, which has been noted in her medical records. 6. Elevated Liver Enzymes The patient has elevated liver enzymes, specifically AST and ALT, which have shown improvement in recent tests. 7. Chronic Back Pain The patient experiences chronic back pain due to a compression fracture and uses NSAIDs for pain management. 8. Pulmonary Nodules The patient has pulmonary nodules, which are being monitored by pulmonology. 9. Bronchiectasis The patient has bronchiectasis, which is part of her respiratory health m anagement. 10. Chronic Cough The patient reports a chronic cough, which is being monitored as part of her respiratory health. 11. Fracture Of Pelvis The patient has a history of a pelvic fracture, contributing to her osteoarthritis and chronic pain. 12. Osteoarthritis The patient has osteoarthritis, which is managed as part of her musculoskeletal health. 13. Stress Reaction The patient has a history of stress reactions, which are noted in her medical records. 14. Hard Of Hearing The patient is hard of hearing, which affects her daily communication. During the visit, I discussed the upcoming cataract surgery with the patient, emphasizing the importance of preoperative clearance, including recent blood work and an EKG. I advised the patient to discontinue NSAIDs and melatonin seven days before the surgery to prevent any complications with anesthesia. We also reviewed her history of premature ventricular contractions, hyperchole sterolemia, and other chronic conditions, ensuring she is well-prepared for the procedure. Orders: Orders Influenza [id number] Immunization Today Z23 - Encounter for immunization TSH reflex Free T4 4 Weeks Z00.00 - Encounter for general adult medical examination without abnormal findings XR chest 2V Today Z01.818 - Encounter for other preprocedural examination ECG 12 lead EKG Today Z01.818 - Encounter for other preprocedural examination Patient Instructions: - Stop taking NSAIDs and melatonin seven days before surgery. - Complete an EKG at the [facility] before the surgery date. - Follow up with pulmonology for monitoring of pulmonary nodules and bronchiectasis. - Recheck thyroid levels in four weeks.
== END 2024-11-12 14:08 | disposition home or self-care (01) ==
LOC: HO.HMCSH 12:58
PROVIDERS: PCP Physician Assistant Medical; Visit Provider Physician Assistant Medical
DX: Z01.818 Encounter for other preprocedural examination (principal); H26.9 Unspecified cataract; I49.3 Ventricular premature depolarization; E78.00 Pure hypercholesterolemia, unspecified; H34.8192 Central retinal vein occlusion, unspecified eye, stable; R79.89 Other specified abnormal findings of blood chemistry; M54.50 Low back pain, unspecified; R91.8 Other nonspecific abnormal finding of lung field; J47.9 Bronchiectasis, uncomplicated; R05.3 Chronic cough; Z87.81 Personal history of (healed) traumatic fracture; M19.90 Unspecified osteoarthritis, unspecified site; F43.0 Acute stress reaction; Z86.69 Personal history of other diseases of the nervous system and sense organs; Z23 Encounter for immunization

== ENCOUNTER → 2024-11-12 12:58 | Outpatient (BNVA) | payer MEDICARE, SELFPAY | PROVIDERS: PCP Physician Assistant Medical; Visit Provider Physician Assistant Medical | DX: Z01.818 Encounter for other preprocedural examination (principal); E78.00 Pure hypercholesterolemia, unspecified; H26.9 Unspecified cataract; M81.0 Age-related osteoporosis without current pathological fracture; R79.89 Other specified abnormal findings of blood chemistry; I49.3 Ventricular premature depolarization; H34.8192 Central retinal vein occlusion, unspecified eye, stable; M54.50 Low back pain, unspecified; R91.8 Other nonspecific abnormal finding of lung field; J47.9 Bronchiectasis, uncomplicated; R05.3 Chronic cough; M19.90 Unspecified osteoarthritis, unspecified site; F43.0 Acute stress reaction; Z23 Encounter for immunization; Z86.69 Personal history of other diseases of the nervous system and sense organs; Z87.81 Personal history of (healed) traumatic fracture | CPT/HCPCS: 90471; 90656; 96127; 99212 ==

== ENCOUNTER 2024-11-14 15:46 | Outpatient (REF) | payer MEDICARE, SELFPAY ==
--- NOTE | ~2024-11-14 | XR_ITS ---
EXAMINATION: XR CHEST CLINICAL INFORMATION: Z01.818 - Encounter for other preprocedural examination COMPARISON: Chest x-ray 08/14/2024 TECHNIQUE: 2 views of the chest were obtained. FINDINGS: The lungs are expanded and clear of acute pneumonic process. There is ill-defined noted opacity left lower lobe. Heart size and pulmonary vascularity is normal. No gross bony abnormality seen. XR/XR chest 2V IMPRESSION: Ill-defined new nodular opacity left lung base. Recommend CT chest for further evaluation.. Electronically signed by: Marciano Devlin MD 11/15/2024 07:06 AM EDT
--- OUTSIDE RECORDS SUMMARY | 2024-11-14 16:27 | XMS_ITS | Clinical Summary ---
Author Organization [facility] Address [address] [place] [phone] Phone Care Team Providers Care Endoscopic Technician Name Role Phone Jose Cuadra DO [...] file Insurance MEDICARE PART A & B [employer] MED[employer] SUPPLEMENT MEDICARE PART A & B [employer] MEDEX SUPPLEMENT MEDICARE PART A & B [facility] MEDEX SUPPLEMENT MEDICARE PART A & B [employer] MEDEX SUPPLEMENT MEDICARE PART A & B [employer] MEDEX SUPPLEMENT MEDICARE PART A & B [employer] MEDEX SUPPLEMENT MEDICARE PART A & B [employer] MEDEX SUPPLEMENT MEDICARE PART A & B [employer] MEDEX SUPPLEMENT MEDICARE PART A & B [employer] MEDEX SUPPLEMENT Care Teams Endoscopic Technician Relationship Specialty Start Date End Date Jose Cuadra DO [address] [place] [address] PCP - General 02/17/17 Additional Source Comments The information contained in this document represents components of the legal health record. It is not the complete legal health record.[facility]
--- OUTSIDE RECORDS SUMMARY | 2024-11-14 16:27 | XMS_ITS | Encounter Summary ---
Author Organization [facility] Address [address] [facility] [address] [place] [address] Phone Care Team Providers Care Grader Tender Name Role Phone Jose Cuadra DO Primary Care Provider Encounter Details Date Type Department Care Team (Late st Contact Info) Description 12/22/2021 Procedure Pass [address] [place] [address] Social History Tobacco Use Types Packs/Day Years [...] on filedocumented in this encounter Care Teams Grader Tender Relationship Specialty Start Date End Date Jose Cuadra DO [address] [place] [address] PCP - General 02/17/17 documented as of this encounter Additional Source Comments The information contained in this document represents components of the legal health record. It is not the complete legal health record.[facility]
--- OUTSIDE RECORDS SUMMARY | 2024-11-14 16:27 | XMS_ITS | Encounter Summary ---
Author Organization [facility] Address [address] [facility] [address] [place] [address] Phone Care Team Providers Care Fisher Purse Seine Name Role Phone Jose Cuadra DO Unavailable Chito Han MD Unavailable [phone] Jose Cuadra DO Primary Care Provider [phone] Encounter Details Date Type Department Care Team (Late st Contact Info) Description 12/22/2017 Ancillary Orders Virtual Department [address] [place] [address] Jose Cuadra DO [address] [place] [address] Breast screening Social History Tobacco Use Types [...] scattered fibroglandular densities. POS -CDHMAMA Edited by: Sandar Dumas on 01/09/2018 3:01 PM Narrative 01/09/2018 [...] unspecified documented in this encounter Care Teams Fisher Purse Seine Relationship Specialty Start Date End Date Jose Cuadra DO [address] [place] [address] PCP - General 02/17/17 Jose Cuadra DO [address] [place] [address] Historical LMR Provider 12/01/16 2 Chito Han MD [address] [place] [address] Historical LMR Provider 12/01/16 2 documented as of this encounter Additional Source Comments The information contained in this document represents components of the legal health record. It is not the complete legal health record.[facility]
--- OUTSIDE RECORDS SUMMARY | 2024-11-14 16:27 | XMS_ITS | Encounter Summary ---
Author Organization [facility] Address [address] [facility] [address] [place] [address] Phone Care Team Providers Care Study Hall Supervisor Name Role Phone Jose Cuadra DO Primary Care Provider [phone] Encounter Details Date Type Department Care Team (Latest Contact Info) Description 12/22/2021 Transcribe Orders Virtual Department [address] [place] [address] Jose Cuadra DO [address] [place] [address] Breast screening (Primary Dx) Social History Tobacco [...] unspecified documented in this encounter Care Teams Study Hall Supervisor Relationship Specialty Start Date End Date Jose Cuadra DO [address] [place] [phone] PCP - General 02/17/17 documented as of this encounter Additional Source Comments The information contained in this document represents components of the legal health record. It is not the complete legal health record.[facility]
== END 2024-11-14 15:47 | disposition home or self-care (01) ==
LOC: HO.HMGCX 15:46
PROVIDERS: PCP Physician Assistant Medical; Visit Provider Physician Assistant Medical
DX: Z01.818 Encounter for other preprocedural examination (principal)
CPT/HCPCS: 71046

== ENCOUNTER → 2024-11-14 15:47 | Outpatient (BNV) | payer MEDICARE, SELFPAY | PROVIDERS: PCP Physician Assistant Medical; Referring Provider Physician Assistant Medical; Visit Provider Radiology Diagnostic Radiology | DX: Z01.818 Encounter for other preprocedural examination (principal); R91.8 Other nonspecific abnormal finding of lung field | CPT/HCPCS: 71046 ==

== ENCOUNTER → 2024-11-19 15:28 | Outpatient (REF) | payer MEDICARE, SELFPAY ==
--- NOTE | 2024-11-19 15:33 | ECG_ITS ---
Test Reason : PREOP Blood Pressure : */* mmHG Vent. Rate : 84 BPM Atrial Rate : 84 BPM P-R Int : 140 ms QRS Dur : 98 ms QT Int : 352 ms P-R-T Axes : 47 46 51 degrees QTcB Int : 415 ms Normal sinus rhythm Incomplete right bundle branch block Borderline ECG When compared with ECG of 09-Feb-2002 13:59, Incomplete right bundle branch block is now Present Referred By: Lisa Sin Electronically Signed By: JARRETT CEJA MD
--- OUTSIDE RECORDS SUMMARY | 2024-11-19 17:52 | XMS_ITS | Encounter Summary ---
Author Organization [facility] Address [address] [facility] [address] [place] [address] Phone Care Team Providers Care Airfield Services Officer Name Role Phone Jose Cuadra DO Unavailable [phone] Chito Han MD Unavailable [phone] Jose Cuadra DO Primary Care Provider [phone] Encounter Details Date Type Department Care Team (Late st Contact Info) Description 12/22/2017 Ancillary Orders Virtual Department [address] [place] [address] Jose Cuadra DO [address] [place] [address] Breast screening Social History Tobacco Use Types [...] unspecified documented in this encounter Care Teams Airfield Services Officer Relationship Specialty Start Date End Date Jose Cuadra DO [address] [place] [address] PCP - General 02/17/17 Jose Cuadra DO [address] [place] [address] Historical LMR Provider 12/01/16 2 Chito Han MD [address] [place] [address] Historical LMR Provider 12/01/16 2 documented as of this encounter Additional Source Comments The information contained in this document represents components of the legal health record. It is not the complete legal health record.[facility]
--- OUTSIDE RECORDS SUMMARY | 2024-11-19 17:52 | XMS_ITS | Encounter Summary ---
Author Organization [facility] Address [address] [facility] [address] [place] [address] Phone Care Team Providers Care Dye Lab Technician Name Role Phone Jose Cuadra DO Primary Care Provider [phone] Encounter Details Date Type Department Care Team (Late st Contact Info) Description 12/22/2021 Procedure Pass [address] [place] [address] Social History Tobacco Use Types Packs/Day Years [...] on filedocumented in this encounter Care Teams Dye Lab Technician Relationship Specialty Start Date End Date Jose Cuadra DO [address] [place] [id number] PCP - General 02/17/17 documented as of this encounter Additional Source Comments The information contained in this document represents components of the legal health record. It is not the complete legal health record.[facility]
--- OUTSIDE RECORDS SUMMARY | 2024-11-19 17:53 | XMS_ITS | Encounter Summary ---
Author Organization [facility] Address [address] [address] Phone Care Team Providers Care Grapple Yarder Operator Name Role Phone Jose Cuadra DO Primary Care Provider [phone] Encounter Details Date Type Department Care Team (Latest Contact Info) Description 12/22/2021 Transcribe Orders Virtual Department 30 [place] [address] Jose Cuadra DO [address] [place] [address] Breast screening (Primary Dx) Social History Tobacco [...] unspecified documented in this encounter Care Teams Grapple Yarder Operator Relationship Specialty Start Date End Date Jose Cuadra DO [address] [place] [id number] PCP - General 02/17/17 documented as of this encounter Additional Source Comments The information contained in this document represents components of the legal health record. It is not the complete legal health record.[facility]
--- OUTSIDE RECORDS SUMMARY | 2024-11-19 17:53 | XMS_ITS | Clinical Summary ---
Author Organization [facility] Address [address] [place] [address] Phone Care Team Providers Care Paintless Dent Repair Technician Name Role Phone Jose Cuadra DO [...] file Insurance MEDICARE PART A & B [employer] MEDEX SUPPLEMENT MEDICARE PART A & B [employer] MED[employer] SUPPLEMENT MEDICARE PART A & B [facility] MEDEX SUPPLEMENT MEDICARE PART A & B [employer] SUPPLEMENT MEDICARE PART A & B [employer] SUPPLEMENT MEDICARE PART A & B [employer] SUPPLEMENT MEDICARE PART A & B [employer] SU[employer]LEMENT MEDICARE PART A & B [employer] SU[employer]LEMENT MEDICARE PART A & B [employer] MEDEX SUPPLEMENT Care Teams Paintless Dent Repair Technician Relationship Specialty Start Date End Date Jose Cuadra DO [address] [place] [id number] PCP - General 02/17/17 Additional Source Comments The information contained in this document represents components of the legal health record. It is not the complete legal health record.[facility]
== END ==
LOC: HO.CARD 15:28
PROVIDERS: PCP Physician Assistant Medical; Visit Provider Physician Assistant Medical
DX: Z01.818 Encounter for other preprocedural examination (principal)
CPT/HCPCS: 93005

== ENCOUNTER → 2024-11-19 15:33 | Outpatient (BNV) | payer MEDICARE, SELFPAY | PROVIDERS: PCP Physician Assistant Medical; Visit Provider Internal Medicine Cardiovascular Disease | DX: I45.10 Unspecified right bundle-branch block (principal) | CPT/HCPCS: 93010 ==

== ENCOUNTER 2024-11-28 09:40 | Outpatient (AMB) | payer MEDICARE, SELFPAY ==
[2024-11-28 09:45] VITALS: BP 150/80; PULSE 88; O2SAT 98; BMI 24.8
--- NOTE | 2024-11-28 09:45 | MHC.OFFVIS ---
Vital Signs 11/28/24 09:45 Height 5 ft 1.5 in Weight 133 lb 6.075 oz BMI 24.8 BP 150/80 H Blood Pressure Location Lt brachial Position Sitting Pulse 88 Pulse Source Pulse Oximeter Pulse Oximetry (%) 98 Oxygen Delivery Method Room Air Intake Visit Reasons: Bronchiectasis/Pulm Nodules/PFT Follow Up Collection Systems Consultant Required: No Accompanied by: Spouse Allergies tetnus Adverse Reaction (Uncoded 11/12/24 15:10) Nausea HPI Comments Details: The patient is a 79 year woman here with a normal CT scan of the chest. Apparently the patient toddler had significant respiratory disease. She was evaluated in [facility]. She did require lung resection back at the age of 4 and she was told that she was going to be incapacitated from a respiratory status. However, the patient did very well. She has episodes of bronchitis typically like once a year. More recently early spring she started developing worsening respiratory symptoms and cough. She went to urgent Care. She was treated. She does not use any inhalers. Based on her history and her respiratory symptoms she did undergo a CT scan of the chest which I personally reviewed with her. She does have some bronchiectatic changes in the right lower lobe where she had a resection. She also has some scarring on that side likely from postoperative changes but can not really see the surgical line. The area healed very well. She also has pulmonary nodules subcentimeter in size and likely some mucus plugging as well. We talked about bronchiectasis and likely that she had a focal area of severe bronchiectasis the lead to recurrent infections and likely had that resected. The residual bronchiectasis is minimal and does have some mucus plugging noted. Therefore we did talk about CPT with an Acapella valve. She is going to get 1 through the mail she is going to use it regularly. She still has not recovered completely from her bronchitis episodes. Sometimes she coughs although nonproductive in nature. Sometimes she feels some chest tightness although no wheezing. I did recommend a inhaler that she can use as needed but she would like to hold off for now. She can try the [id number] cough medication and also the Acapella valve. Will also plan to have pulmonary function studies sometime in the fall when she returns. If she develops any worsening respiratory symptoms prior to that and she wants to try the inhaler she can always call and I can send her went to the pharmacy. We also did talk about vaccines. She needs to get a pneumonia vaccine her Tdap updated and also should get the RSV vaccine in the fall. She also get the flu shot in the other vaccines as needed. 11/28/2024 the patient is here for a pulmonary follow-up visit. Overall the patient has been doing okay. She is concerned about having cataract surgery tomorrow. In the meantime her blood pressure was a little elevated today. We did recheck get him still elevated. I did send a message to her primary care doctor. From a respiratory casarez the patient is doing well she continues use her respiratory therapy with good effect. She did have a CAT scan that we did review back in May 2024 demonstrating the bronchiectatic changes and nodular densities. More recently she did have a chest x-ray and it demonstrated a slight haziness over the left hemithorax. And she is scheduled to undergo a CAT scan. He is reassuring that I do not see anything in that area back on her CAT scan from May 2024. That being said will have to just follow-up with those results of the CAT scan this time around. We also looked at her pulmonary function studies. No evidence of any obstructive nor restrictive ventilatory defects. She has a mild restrictive ventilatory defect but not enough to warrant any further intervention. Likely related to her underlying airway disease in addition to her lung resection. [facility] Medical History (Updated 11/19/24 @ 17:06 by Lisa Sin PA-C) Abnormal chest x-ray History of hearing problem Cataract Pre-op evaluation Bronchiectasis Stress reaction Pulmonary nodules History of mammogram (~12/28/21) History of pelvic fracture Central retinal vein occlusion PVCs (premature ventricular contractions) History of menopause Osteoarthritis Elevated LFTs Mild hypercholesterolemia Chronic cough [place] (hard of hearing) Surgical History History of colonoscopy (~01/25/18) History of dilatation and curettage H/O wrist surgery S/P excision of lipoma S/P lobectomy of lung S/P appendectomy S/P cholecystectomy Family History Father No problems noted. Mother No problems noted. Social History Housing: House Patient Tobacco Use Status: Never used Tobacco service: No Current occupational status: retired and disabled Current occupation: rt handed Cognitive needs: No Hearing needs: No Vision needs: Yes (rx glasses) Review of Systems Const Denies fever(s) ENT Reports nasal congestion Card Denies chest pain Resp Reports cough and Denies wheezing GI Reports no additional complaints Musc Reports no additional complaints Skin/Breast Denies rash Neuro Reports no additional complaints Noe/Lymph Reports no additional complaints Aller/Immun Denies wheezing Physical Exam Vital Signs: Last Vital Signs Pulse 88 11/28/24 09:45 BP 150/80 H 11/28/24 09:45 Pulse Ox 98 11/28/24 09:45 Oxygen Delivery Method Room Air 11/28/24 09:45 BMI result Body Mass Index 24.8 Const General: comfortable HEENT Head: Yes normocephalic Neck Neck: Yes supple Chest Chest palpation & inspection: normal inspection of the chest Resp Effort & Inspection: normal respiratory effort Auscultation: diminished lung sounds Cardio Heart sounds: S1 normal heart sound present and S2 normal heart sound present GI Palpation (GI): Soft to palpation Skin General skin exam: no rashes or lesions noted Extrem General: Yes no clubbing, cyanosis or edema Assessment & Plan Assessment & Plan (1) Chronic cough: Code(s): R05.3 - Chronic cough Category: Medical (2) Pulmonary nodules: Code(s): R91.8 - Other nonspecific abnormal finding of lung field Category: Medical (3) Bronchiectasis: Code(s): J47.9 - Bronchiectasis, uncomplicated Category: Medical Qualifiers: Bronchiectasis type: uncomplicated Qualified Code(s): J47.9 - Bronchiectasis, uncomplicated Plan CPT with acapella valve Repeat CT chest F/U 6 months Coding Level of Care Code Est Pt Level 4 (40745) Complex EM visit Add On G2211 Diagnoses Chronic cough R05.3 Pulmonary nodules R91.8 Bronchiectasis without complication J47.9 Bronchiectasis type: uncomplicated Time Spent (min) 17
--- OUTSIDE RECORDS SUMMARY | 2024-11-28 11:04 | XMS_ITS | Encounter Summary ---
Author Organization [facility] Address [address] [facility] [address] [place] [address] Phone Care Team Providers Care Hat Mender Name Role Phone Jose Cuadra DO Unavailable [phone] Chito Han MD Unavailable [phone] Jose Cuadra DO Primary Care Provider [phone] Encounter Details Date Type Department Care Team (Late st Contact Info) Description 12/22/2017 Ancillary Orders Virtual Department [address] [place] [address] Jose Cuadra DO [address] [place] [address] Breast screening Social History Tobacco Use Types [...] unspecified documented in this encounter Care Teams Hat Mender Relationship Specialty Start Date End Date Jose Cuadra DO [address] [place] [address] PCP - General 02/17/17 Jose Cuadra DO [address] [place] [address] Historical LMR Provider 12/01/16 2 Chito Han MD [address] [place] [address] Historical LMR Provider 12/01/16 2 documented as of this encounter Additional Source Comments The information contained in this document represents components of the legal health record. It is not the complete legal health record.[facility]
--- OUTSIDE RECORDS SUMMARY | 2024-11-28 11:04 | XMS_ITS | Encounter Summary ---
Author Organization [facility] Address [address] [facility] [address] [place] [address] Phone Care Team Providers Care Oil Producer Name Role Phone Jose Cuadra DO Primary Care Provider [phone] Encounter Details Date Type Department Care Team (Late st Contact Info) Description 12/22/2021 Procedure Pass [address] [place] [address] Social History Tobacco Use Types Packs/Day Years [...] on filedocumented in this encounter Care Teams Oil Producer Relationship Specialty Start Date End Date Jose Cuadra DO [address] [place] [address] PCP - General 02/17/17 documented as of this encounter Additional Source Comments The information contained in this document represents components of the legal health record. It is not the complete legal health record.[facility]
--- OUTSIDE RECORDS SUMMARY | 2024-11-28 11:04 | XMS_ITS | Encounter Summary ---
Author Organization [facility] Address [address] [facility] [address] [place] [address] Phone Care Team Providers Care Senior Strategy Analyst Name Role Phone Jose Cuadra DO Primary Care Provider [phone] Encounter Details Date Type Department Care Team (Latest Contact Info) Description 12/22/2021 Transcribe Orders Virtual Department [address] [place] [address] Jose Cuadra DO [address] [place] [address] Breast screening (Primary Dx) Social History Tobacco [...] unspecified documented in this encounter Care Teams Senior Strategy Analyst Relationship Specialty Start Date End Date Jose Cuadra DO [address] [place] [address] PCP - General 02/17/17 documented as of this encounter Additional Source Comments The information contained in this document represents components of the legal health record. It is not the complete legal health record.[facility]
--- OUTSIDE RECORDS SUMMARY | 2024-11-28 11:05 | XMS_ITS | Clinical Summary ---
Author Organization [facility] Address [address] [place] [address] Phone Care Team Providers Care Copy Cutter Name Role Phone Jose Cuadra DO Primary [...] file Insurance MEDICARE PART A & B [employer] MED[employer] SUPPLEMENT MEDICARE PART A & B [employer] SUPPLEMENT MEDICARE PART A & B [facility] MEDEX SUPPLEMENT Member Subscriber Plan / Payer ([facility] [employer] 08/15/2011-Present) Name:Jenny Gutierrez Relation to Subscriber:Self Name:JENNY GUTIERREZ Payer ID:[id number] (NAIC) Type:Indemnity Address: [address] [place] [address] MEDICARE PART A & B [employer] MED[employer] SUPPLEMENT MEDICARE PART A & B Member Subscriber Plan / Payer ([facility] [employer] 08/15/2011-Present) Name:Jenny Gutierrez Member ID:[id number] Relation to Subscriber:Self Name:Jenny Gutierrez Subscriber ID:[id number] Payer ID:[id number] Group ID:Not on file Type:Medicare Address: [email or web address] [address] [place] [phone] [employer] SUPPLEMENT MEDICARE PART A & B [employer] SUPPLEMENT MEDICARE PART A & B [employer] SUPPLEMENT MEDICARE PART A & B [employer] SUPPLE[employer] MEDICARE PART A & B [employer] SUPPLEMENT Care Teams Copy Cutter Relationship Specialty Start Date End Date Jose Cuadra DO [address] [place] [phone] PCP - General 02/17/17 Additional Source Comments The information contained in this document represents components of the legal health record. It is not the complete legal health record.[facility]
== END 2024-11-28 10:06 | disposition home or self-care (01) ==
LOC: HO.HPS 09:41
PROVIDERS: PCP Physician Assistant Medical; Visit Provider Hospitalist
DX: R05.3 Chronic cough (principal); R91.8 Other nonspecific abnormal finding of lung field; J47.9 Bronchiectasis, uncomplicated
CPT/HCPCS: 99214; G2211

== ENCOUNTER → 2024-11-28 09:40 | Outpatient (BNVA) | payer MEDICARE, SELFPAY | PROVIDERS: PCP Physician Assistant Medical; Visit Provider Hospitalist | DX: R05.3 Chronic cough (principal); R91.8 Other nonspecific abnormal finding of lung field; J47.9 Bronchiectasis, uncomplicated | CPT/HCPCS: 99212 ==

== ENCOUNTER 2024-12-04 12:58 | Outpatient (AMB) | payer MEDICARE, SELFPAY ==
[2024-12-04 13:02] VITALS: BP 187/107; PULSE 83; TEMP 36.3; O2SAT 98; BMI 25.1
--- NOTE | 2024-12-04 13:02 | A.OFFPC_ITS ---
Vital Signs 12/04/24 13:02 12/04/24 16:01 Height 5 ft 1.5 in Weight 135 lb BMI 25.1 BP 187/107 H 160/90 H Blood Pressure Location Rt brachial Position Sitting Pulse 83 Pulse Source Pulse Oximeter Temp 97.4 F Temp Source Temporal Artery Scan Pulse Oximetry (%) 98 Oxygen Delivery Method Room Air Intake Visit Reasons: Follow Up BP Check Intake Note: cataract surgery 11/29/24 & 12/06/24 Turf Sales Person Required: No Accompanied by: Self / Same As Patient Allergies tetnus Adverse Reaction (Severe, Uncoded 12/04/24 15:42) Nausea Medication List - Last Reconciled 12/04/24 by Lisa Sin PA-C lisinopril 10 mg PO DAILY melatonin 10 mg PO BEDTIME PRN nabumetone 500 mg PO BID PRN 90 days Tobacco use date assessed: 12/04/24 Fall risk assessment: No Falls in past year Last assessed Fall Risk: 12/04/24 Dental Screening Dental Screen Date: 12/04/24 Did you have a dental visit in the last 12 months?: Yes Did you have a dental problem in the last 6 months where you did not have access to dental care?: No Was dental information given to patient?: Patient has dentist HPI Follow Up BP Check HPI Details The patient is a 79-year-old female presenting with elevated blood pressure and hyperlipidemia. The patient reports a history of elevated blood pressure readings, with recent measurements showing significant elevation, including a reading of 160/90 mmHg during this visit. She has been experiencing stress, which may contribute to her hypertension, but the condition appears to have been present for a prolonged period. There is a family history of hypertension, as her mother had similar issues. The patient also has hyperlipidemia, which she is attempting to manage through diet and exercise. She acknowledges that her cholesterol levels have not decreased significantly with lifestyle modifications alone. Social History - Reports experiencing significant stres s, which may impact her blood pressure management. [facility] Medical History (Updated 12/04/24 @ 16:04 by Lisa Sin PA-C) Hyperlipidemia Hypertension Abnormal chest x-ray History of hearing problem Cataract Pre-op evaluation Bronchiectasis Stress reaction Pulmonary nodules History of mammogram (~12/28/21) History of pelvic fracture Central retinal vein occlusion PVCs (premature ventricular contractions) History of menopause Osteoarthritis Elevated LFTs Mild hypercholesterolemia Chronic cough MATCH-E-BE-NASH-SHE-WISH BAND (hard of hearing) Surgical History History of colonoscopy (~01/25/18) History of dilatation and curettage H/O wrist surgery S/P excision of lipoma S/P lobectomy of lung S/P appendectomy S/P cholecystectomy Family History Father No problems noted. Mother No problems noted. Social History Housing: House Patient Tobacco Use Status: Never used Tobacco service: No Current occupational status: retired and disabled Current occupation: rt handed Cognitive needs: No Hearing needs: No Vision needs: Yes (rx glasses) Questionnaire PHQ-9 Over the last 2 weeks, how often have you been bothered by any of the following problems? 1. Little interest or pleasure in doing things: not at all 2. Feeling down, depressed, or hopeless: not at all 3. Trouble falling or staying asleep, or sleeping too much: several days 4. Feeling tired or having little energy: not at all 5. Poor appetite or overeating: not at all 6. Feeling bad about yourself - or that you are a failure or have let yourself or your family down: not at all 7. Trouble concentrating on things, such as reading the newspaper or watching television: not at all 8. Moving or speaking so slowly that other people could have noticed. Or the opposite - being so fidgety or restless that you have been moving around a lot more than usual: not at all 9. Thoughts that you would be better off or of hurting yourself in some way: not at all Total score: 1 Depression Screening Interpretation: Negative Depression Screening Done: Yes 28105 - PHQ-9 Billing: Yes Source: Developed by Drs. Jose Cortez, Alexandrea Street, Satya Reed and colleagues, with an educational geoffrey from [employer]. Thrive Questionnaire Date Thrive assessed: 12/04/24 I am a: Patient What is your living situation today?: I have a steady place to live Within the past 12 months, did the food you bought not last and you didn't have the money to get more?: Never true Within the past 12 months, did you worry whether your food would run out before you got money to buy more?: Never true Do you have trouble paying for medicines?: No Do you have trouble getting transportation to medical appointments?: No Do you have trouble paying your heating and electricity bill?: No Do you have trouble taking care of your child, family member or friend?: No Do you have trouble with day-to-day activities such as bathing, preparing meals, shopping, managing finances, etc.?: No Are you currently unemployed and looking for a job?: No Are you interested in more education?: No THRIVE Score: 0 AUDIT C Alcohol Use Questionnaire (AUDIT-C) 1. How often do you have a drink containing alcohol?: Never Total Score: 0 Score Reviewed/Action Taken: No TIMOTHY-7 AMB Questionnaire TIMOTHY-7 Date TIMOTHY - 7 assessed: 12/04/24 Feeling nervous, anxious, or on edge: 0 = Not at all Not being able to stop or control worryin = Not at all Worrying too much about different things: 0 = Not at all Trouble relaxin = Not at all Being so restless that it is hard to sit still: 0 = Not at all Becoming easily annoyed or irritable: 0 = Not at all Feeling afraid as if something awful might happen: 0 = Not at all Total TIMOTHY-7 score (0-4 normal; 5-9 mild; 10-14 moderate; 15-21 severe): 0 Source: Developed by Drs. Jose Cortez, Alexandrea Street, Satya Reed and colleagues, with an educational geoffrey from [employer]. TIMOTHY-7 Assessment Billing TIMOTHY-7 Assessment Tool: TIMOTHY-7 Assessment 20471 Review of Systems Const Details: - Cardiovascular: Reports elevated blood pressure readings. Denies chest pain or palpitations. - General: Reports stress as a contributing factor to her symptoms. All systems reviewed & are unremarkable except as noted in HPI and below Physical exam (Primary Care) Vital Signs: Last Vital Signs Temp 97.4 F 12/04/24 13:02 Pulse 83 12/04/24 13:02 BP 187/107 H 12/04/24 13:02 Pulse Ox 98 12/04/24 13:02 Oxygen Delivery Method Room Air 12/04/24 13:02 Care Plan Goal for BP management: <140/90 patient will be started on lisinopril 10 mg return in 2 weeks for blood pressure check and possible increase in blood pressure medications BMI result Body Mass Index 25.1 BMI Assessment/Plan discussion: High BMI High, discussed plan: lifestyle, weight reduction, dietary, physical activity, alcohol moderation and other Tobacco/Smoking Status: Tobacco use Status Tobacco use date assessed 12/04/24 12/04/24 13:03 Patient Tobacco Use Status Never used Tobacco 12/04/24 13:03 PHQ-9: PHQ-9 Score PHQ-9: Total score 1 12/04/24 13:03 Depression Screening Interpretation: Negative Thrive Assessment: Date of Thrive Assessment Date Thrive assessed 12/04/24 12/04/24 13:03 Const Other: Appearance: Alert. Oriented X3. No acute distress. Head: Normal external exam. Normocephalic. Atraumatic. Eyes: Pupils are equal, round, and reactive to light. Extraocular movements intact. Conjunctiva and sclera normal. Eyelids normal. Throat: Pharynx normal. Uvula midline. Moist mucous membranes. Neck: Normal inspection. Neck supple. Full range of motion. Cardiovascular: Blood pressure recorded at 160/90. Normal heart rate and rhythm. Heart sound normal. No murmurs noted. Pulses normal throughout. Respiratory: No respiratory distress. Painless inspiration. Breath sounds normal. No wheezes/rales/rhonchi noted. No accessory muscle usage noted or d ecreased air movement noted. Back: Full range of motion noted. Skin: Skin warm and dry. Normal skin color. Extremities: Extremities exhibit normal range of motion. Neuro: Oriented X 3. No motor deficit. No sensory deficit. Reflexes normal. Office Procedures Flu Questionnaire Does the patient have a severe egg allergy?: No Does the patient have severe life threatening allergies?: No Does the patient have a fever or illness today?: No Has the patient ever had Guillain-[place] Syndrome?: No Has the patient ever had any past reaction to a flu shot?: No Immunizations Fluarix [id number] (PF) 45 mcg (15 mcg x 3)/0.5 mL IM syringe Performing Provider: Lisa Sin PA-C Performing Location: [facility] [place] [facility] Documented (not given) by: Bibi Morales CMA on 12/04/24 13:08 Reason Not Given: Received Previously Coding Level of Care Code Est Pt Level 4 (55663) Complex EM visit Add On G2211 Diagnoses Hypertension I10 Hyperlipidemia E78.5 Additional Codes TIMOTHY-7 Assessment Billing - TIMOTHY-7 Assessment Tool: TIMOTHY-7 Assessment 78081 ([id number]) PHQ-9 - 84001 - PHQ-9 Billing: Yes ([id number]) Assessment & Plan Assessment & Plan (1) Hypertension: Code(s): I10 - Essential (primary) hypertension Category: Medical Plan: The patient will be started on lisinopril 10 mg daily to manage her elevated blood pressure. She is advised to monitor her blood pressure regularly and return for a follow-up in two weeks to assess the effectiveness of the medication. (2) Hyperlipidemia: Code(s): E78.5 - Hyperlipidemia, unspecified Category: Medical Plan: The patient is encouraged to continue with dietary modifications and exercise to manage her cholesterol levels. A re-evaluation of her lipid profile will be considered in the future to assess the need for pharmacological intervention. Plan Plan Patient was informed and verbally consented to the use of an ambient scribe for clinic note documentation during this visit. 1. Essential Hypertension The patient will be started on lisinopril 10 mg daily to manage her elevated blood pressure. She is advised to monitor her blood pressure regularly and return for a follow-up in two weeks to assess the effectiveness of the medication. 2. Hyperlipidemia The patient is encouraged to continue with dietary modifications and exercise to manage her cholesterol levels. A re-evaluation of her lipid profile will be considered in the future to assess the need for pharmacological intervention. I discussed with the patient the importance of managing her blood pressure and cholesterol levels to prevent cardiovascular complications. We agreed on starting lisinopril 10 mg daily and monitoring her blood pressure closely. I also emphasized the role of lifestyle modifications in managing hyperlipidemia and the potential need for medication if lifestyle changes are insufficient. Orders: Orders Influenza [id number] Immunization Today Z23 - Encounter for immunization Medications: New lisinopril 10 mg PO DAILY 30 tabs 0RF Patient Instructions: - Take lisinopril 10 mg daily as prescribed. - Monitor blood pressure regularly and keep a log of readings. - Continue with dietary modifications and exercise to manage cholesterol levels. - Return for a follow-up appointment in two weeks.
[2024-12-04 16:01] VITALS: BP 160/90
--- OUTSIDE RECORDS SUMMARY | 2024-12-04 16:34 | XMS_ITS | Encounter Summary ---
Author Organization [facility] Address [address] [facility] [address] [place] [address] Phone Care Team Providers Care Director Game Name Role Phone Jose Cuadra DO Unavailable Chito Hna MD Unavailable [phone] Jose Cuadra DO Primary Care Provider [phone] Encounter Details Date Type Department Care Team (Late st Contact Info) Description 12/22/2017 Ancillary Orders Virtual Department [address] [place] [address] Jose Cuadra DO [address] [place] [address] Breast screening Social History Tobacco Use Types [...] unspecified documented in this encounter Care Teams Director Game Relationship Specialty Start Date End Date Jose Cuadra DO [address] [place] [address] PCP - General 02/17/17 Jose Cuadra DO [address] [place] [address] Historical LMR Provider 12/01/16 2 Chito Han MD [address] [place] [address] Historical LMR Provider 12/01/16 2 documented as of this encounter Additional Source Comments The information contained in this document represents components of the legal health record. It is not the complete legal health record.[facility]
--- OUTSIDE RECORDS SUMMARY | 2024-12-04 16:35 | XMS_ITS | Encounter Summary ---
Author Organization [facility] Address [address] [facility] [address] [place] [address] Phone Care Team Providers Care Infectious Disease Physician Name Role Phone Jose Cuadra DO Primary Care Provider Encounter Details Date Type Department Care Team (Late st Contact Info) Description 12/22/2021 Procedure Pass [address] [place] [address] Social History Tobacco Use Types Packs/Day Years [...] on filedocumented in this encounter Care Teams Infectious Disease Physician Relationship Specialty Start Date End Date Jose Cuadra DO [address] [place] [address] PCP - General 02/17/17 documented as of this encounter Additional Source Comments The information contained in this document represents components of the legal health record. It is not the complete legal health record.[facility]
--- OUTSIDE RECORDS SUMMARY | 2024-12-04 16:35 | XMS_ITS | Clinical Summary ---
Author Organization [facility] Address [address] [place] [address] Phone Care Team Providers Care Continuous Washer Operator Name Role Phone Jose Cuadra DO [...] file Insurance MEDICARE PART A & B [employer] MEDEX SUPPLEMENT MEDICARE PART A & B [employer] MEDEX SUPPLEMENT MEDICARE PART A & B Member Subscriber Plan / Payer ( fective 2011-Present) Name:Jenny Gutierrez Member ID:[id number] Relation to Subscriber:Self Name:Jenny Gutierrez Subscriber ID:[id number] Payer ID:[id number] Group ID:Not on file Type:Medicare Address: [facility] [employer] [facility] [address] [place] [phone] [facility] MEDEX SUPPLEMENT MEDICARE PART A & B [employer] MED[employer] SUPPLEMENT MEDICARE PART A & B [employer] MED[employer] SUPPLEMENT MEDICARE PART A & B [employer] MED[employer] SUPPLEMENT MEDICARE PART A & B [employer] MED[employer] SUPPLEMENT MEDICARE PART A & B [employer] MED[employer] SUPPLEMENT MEDICARE PART A & B [employer] MEDEX SUPPLEMENT Care Teams Continuous Washer Operator Relationship Specialty Start Date End Date Jose Cuadra DO [address] [place] [address] PCP - General 02/17/17 Additional Source Comments The information contained in this document represents components of the legal health record. It is not the complete legal health record.[facility]
--- OUTSIDE RECORDS SUMMARY | 2024-12-04 16:35 | XMS_ITS | Encounter Summary ---
Author Organization [facility] Address [address] [facility] [address] [address] Phone Care Team Providers Care Notching Machine Operator Name Role Phone Jose Cuadra DO Primary Care Provider [phone] Encounter Details Date Type Department Care Team (Latest Contact Info) Description 12/22/2021 Transcribe Orders Virtual Department [address] [place] [address] Jose Cuadra DO [address] [place] [address] Breast screening (Primary Dx) Social History Tobacco [...] unspecified documented in this encounter Care Teams Notching Machine Operator Relationship Specialty Start Date End Date Jose Cuadra DO [address] [place] [address] PCP - General 02/17/17 documented as of this encounter Additional Source Comments The information contained in this document represents components of the legal health record. It is not the complete legal health record.[facility]
== END 2024-12-04 13:33 | disposition home or self-care (01) ==
LOC: HO.HMCSH 12:58
PROVIDERS: PCP Physician Assistant Medical; Visit Provider Physician Assistant Medical
DX: I10 Essential (primary) hypertension (principal); E78.5 Hyperlipidemia, unspecified; Z23 Encounter for immunization

== ENCOUNTER → 2024-12-04 12:58 | Outpatient (BNVA) | payer MEDICARE, SELFPAY | PROVIDERS: PCP Physician Assistant Medical; Visit Provider Physician Assistant Medical | DX: I10 Essential (primary) hypertension (principal); E78.5 Hyperlipidemia, unspecified; F43.9 Reaction to severe stress, unspecified; Z28.89 Immunization not carried out for other reason | CPT/HCPCS: 90471; 96127; 99212 ==

== ENCOUNTER 2024-12-14 11:20 | Outpatient (REF) | payer MEDICARE, SELFPAY ==
--- NOTE | ~2024-12-14 | CT_ITS ---
EXAMINATION: CT CHEST WITHOUT CONTRAST CLINICAL INFORMATION: R 93.89. Abnormal findings. COMPARISON: June 08, 2024. TECHNIQUE: Multidetector volumetric CT imaging of the chest was done. Axial MIP volume rendering provided. Sagittal and coronal reformatted images were obtained. This CT examination was performed using dose optimization techniques as appropriate, variously including the following: *Automated exposure control *Adjustment of mA and/or kV according to patient size (this includes techniques or standardized protocols for targeted exams where dose is matched to indication/reason for exam; i.e. extremities or head) *Use of iterative reconstruction technique DLP: 100 mGy-cm FINDINGS: PORTABLE POWER TOOL REPAIRER: Prominent thoracic aorta. Pulmonary reticular pattern more conspicuous in the right upper lung lobe. Level spondylosis. Patient's large body habitus/obesity. Upper extremities at the size of the head. LUNGS: Bilateral apical lung scarring. Volume loss right upper lung lobe. Pulmonary patchy groundglass and linear attenuation abnormalities in the lower lung lobes, lingula and right middle lung lobe. Bronchiectasis, right lower lung lobe. Subsegmental subpleural pulmonary nodules, bilaterally. Respiratory where is patent. MEDIASTINUM: Nonspecific prominent mediastinal lymph nodes. Calcified plaque thoracic aorta and its main branches without aneurysm. Heart is not enlarged. Tortuosity of the descending thoracic aorta. No pericardial effusion. No pneumomediastinum. Thyroid gland is not enlarged. CORONARY ARTERY CALCIFICATION: Calcified plaques in the left coronary artery. PLEURA: No pleural effusion. No pneumothorax. No calcified pleural plaques. AXILLA: No lymphadenopathy. UPPER ABDOMEN: Calcified plaque in the abdominal aorta and likely the origin of the left main renal artery. OSSEOUS STRUCTURES: Vertebral plana, T11. S-shaped curvature of the thoracolumbar spine. No acute rib fracture. Sternum is intact. Clavicles are grossly intact. CT/CT chest wo IV con IMPRESSION: Stable subcentimeter subpleural pulmonary nodules. Bronchiectasis, right lower lung lobe. Vertebral plana, T11. Overall stable. Fleischner guidelines were followed. Electronically signed by: Nakul Starks MD 12/14/2024 12:04 PM EDT
--- OUTSIDE RECORDS SUMMARY | 2024-12-14 12:54 | XMS_ITS | Clinical Summary ---
Author Organization [facility] Address [address] [place] [address] Phone Care Team Providers Care Restaurant Operations Manager Name Role Phone Jose Cuadra DO Primary [...] file Insurance MEDICARE PART A & B [employer] MED[employer] SUPPLEMENT MEDICARE PART A & B [employer] MED[employer] SUPPLEMENT MEDICARE PART A & B [facility] MEDEX SUPPLEMENT MEDICARE PART A & B [employer] MED[employer] SUPPLEMENT MEDICARE PART A & B [employer] SUPPLEMENT MEDICARE PART A & B [employer] SUPPLEMENT MEDICARE PART A & B [employer] SUPPLEMENT MEDICARE PART A & B [employer] SUPPLEMENT MEDICARE PART A & B [employer] MEDEX SUPPLEMENT Care Teams Restaurant Operations Manager Relationship Specialty Start Date End Date Jose Cuadra DO [address] [place] [address] PCP - General 02/17/17 Additional Source Comments The information contained in this document represents components of the legal health record. It is not the complete legal health record.[facility]
--- OUTSIDE RECORDS SUMMARY | 2024-12-14 12:54 | XMS_ITS | Encounter Summary ---
Author Organization [facility] Address [address] [facility] [address] [place] [address] Phone Care Team Providers Care Department Supervisor Name Role Phone Jose Cuadra DO Primary Care Provider Encounter Details Date Type Department Care Team (Late st Contact Info) Description 12/22/2021 Procedure Pass [address] [place] [address] Social History Tobacco Use Types Packs/Day Years [...] on filedocumented in this encounter Care Teams Department Supervisor Relationship Specialty Start Date End Date Jose Cuadra DO [address] [place] [address] PCP - General 02/17/17 documented as of this encounter Additional Source Comments The information contained in this document represents components of the legal health record. It is not the complete legal health record.[facility]
--- OUTSIDE RECORDS SUMMARY | 2024-12-14 12:54 | XMS_ITS | Encounter Summary ---
Author Organization [facility] Address [address] [facility] [address] [place] [address] Phone Care Team Providers Care Vacuum Cleaner Operator Name Role Phone Jose Cuadra DO Primary Care Provider [phone] Encounter Details Date Type Department Care Team (Latest Contact Info) Description 12/22/2021 Transcribe Orders Virtual Department [address] [place] [address] Jose Cuadra DO [address] [place] [address] Breast screening (Primary Dx) Social History Tobacco [...] unspecified documented in this encounter Care Teams Vacuum Cleaner Operator Relationship Specialty Start Date End Date Jose Cuadra DO [address] [place] [address] PCP - General 02/17/17 documented as of this encounter Additional Source Comments The information contained in this document represents components of the legal health record. It is not the complete legal health record.[facility]
--- OUTSIDE RECORDS SUMMARY | 2024-12-14 12:54 | XMS_ITS | Encounter Summary ---
Author Organization [facility] Address [address] [facility] [address] [place] [address] Phone Care Team Providers Care Senior Peoplesoft Developer Name Role Phone Jose Cuadra DO Unavailable [phone] Chito Han MD Unavailable [phone] Jose Cuadra DO Primary Care Provider [phone] Encounter Details Date Type Department Care Team (Late st Contact Info) Description 12/22/2017 Ancillary Orders Virtual Department [address] [place] [address] Jose Cuadra DO [address] [place] [address] Breast screening Social History Tobacco Use Types [...] documented in this encounter Care Teams Senior Peoplesoft Developer Relationship Specialty Start Date End Date Jose Cuadra DO [address] [place] [address] PCP - General 02/17/17 Jose Cuadra DO [address] [place] [address] Historical LMR Provider 12/01/16 2 Chito Han MD [address] [place] [address] Historical LMR Provider 12/01/16 2 documented as of this encounter Additional Source Comments The information contained in this document represents components of the legal health record. It is not the complete legal health record.[facility]
--- OUTSIDE RECORDS SUMMARY | 2024-12-14 12:54 | XMS_ITS ---
Author Organization Unknown ENCOUNTERS Encounter Performer Location Date Diagnosis Diagnosis Status Emergency [address] [id number] [place] *Note: Encounters from your own facility or health system may be excluded. Allergies, Adverse Reactions, Alerts Allergen Type Severity Identification Date Medications Name Date Quantity Days Supplied GPI Number
== END 2024-12-14 11:21 | disposition home or self-care (01) ==
LOC: HO.CT 11:20
PROVIDERS: PCP Physician Assistant Medical; Visit Provider Physician Assistant Medical
DX: R93.89 Abnormal findings on diagnostic imaging of other specified body structures (principal)
CPT/HCPCS: 71250

== ENCOUNTER → 2024-12-14 11:22 | Outpatient (BNV) | payer MEDICARE, SELFPAY | PROVIDERS: PCP Physician Assistant Medical; Visit Provider Radiology Diagnostic Radiology | DX: R93.89 Abnormal findings on diagnostic imaging of other specified body structures (principal) | CPT/HCPCS: 71250 ==

== ENCOUNTER 2024-12-18 13:59 | Outpatient (AMB) | payer MEDICARE, SELFPAY ==
[2024-12-18 14:08] VITALS: BP 137/67; PULSE 86; RESP 14; TEMP 36.7; O2SAT 95; BMI 24.2
--- NOTE | 2024-12-18 14:08 | MHC.PC.OV ---
Vital Signs 12/18/24 14:08 Height 5 ft 1.5 in Weight 130 lb BMI 24.2 BP 137/67 Blood Pressure Location Rt brachial Position Sitting Respiration 14 Pulse 86 Pulse Source Pulse Oximeter Temp 98.0 F Temp Source Temporal Artery Scan Pulse Oximetry (%) 95 Oxygen Delivery Method Room Air Intake Visit Reasons: BP follow up Floor Coverings Salesperson Required: No Accompanied by: Self / Same As Patient Allergies tetnus Adverse Reaction (Severe, Uncoded 12/18/24 16:17) Nausea Medication List - Last Reconciled 12/18/24 by Lisa Sin PA-C lisinopril 10 mg PO DAILY melatonin 10 mg PO BEDTIME PRN nabumetone 500 mg PO BID PRN 90 days Tobacco use date assessed: 12/04/24 Dental Screening Dental Screen Date: 12/04/24 HPI BP follow up HPI Details The patient is a 79-year-old female presenting for a blood pressure check and review of imaging results. She was recently started on lisinopril for hypertension and has tolerated it well without any weird cough. Her blood pressure at home was 127 today. The patient has a history of a partial lung resection and a recent CT scan of her chest showed stable subcentimeter, subpleural pulmonary nodules and bronchiectasis in the right lower lobe, with no new findings. She reports a chronic dry cough that is mostly present at night and is soothed by drinking water. She was using an incentive spirometer but has stopped since her recent cataract surgery due to concerns about increasing intraocular pressure. Blood work from October showed a TSH of 4.81, which is slightly elevated, though her Free T4 was normal. Her thyroid levels have previously been high but have also returned to normal. Her AST and ALT are chronically elevated, which is a familial trait also seen in her sisters and two of her sons. Her cholesterol has improved without medication, with total cholesterol decreasing from 211 to 205 and bad cholesterol from 150 to 148. She has previously tried cholesterol medication but reported that it did not work well for her. Social History - Alcohol use: The patient reports she has not consumed alcohol in a very long time. - Diet: The patient acknowledges the typical [place] diet is not ideal and reports eating healthy foods. - Family History: The patient reports that two of her sons and all of her sisters have elevated liver enzymes. COUNT INCLUDES THE [facility] Medical History (Updated 12/18/24 @ 16:20 by Lisa Sin PA-C) Pure hypercholesterolemia, unspecified Subclinical hypothyroidism Hyperlipidemia Hypertension Abnormal chest x-ray History of hearing problem Cataract Pre-op evaluation Bronchiectasis Stress reaction Pulmonary nodules History of mammogram (~12/28/21) History of pelvic fracture Central retinal vein occlusion PVCs (premature ventricular contractions) History of menopause Osteoarthritis Elevated LFTs Mild hypercholesterolemia Chronic cough [place] (hard of hearing) Surgical History History of colonoscopy (~01/25/18) History of dilatation and curettage H/O wrist surgery S/P excision of lipoma S/P lobectomy of lung S/P appendectomy S/P cholecystectomy Family History Father No problems noted. Mother No problems noted. Social History Housing: House Patient Tobacco Use Status: Never used Tobacco service: No Current occupational status: retired and disabled Current occupation: rt handed Cognitive needs: No Hearing needs: No Vision needs: Yes (rx glasses) Questionnaire PHQ-9 Over the last 2 weeks, how often have you been bothered by any of the following problems? 1. Little interest or pleasure in doing things: not at all 2. Feeling down, depressed, or hopeless: not at all 3. Trouble falling or staying asleep, or sleeping too much: several days 4. Feeling tired or having little energy: not at all 5. Poor appetite or overeating: not at all 6. Feeling bad about yourself - or that you are a failure or have let yourself or your family down: not at all 7. Trouble concentrating on things, such as reading the newspaper or watching television: not at all 8. Moving or speaking so slowly that other people could have noticed. Or the opposite - being so fidgety or restless that you have been moving around a lot more than usual: not at all 9. Thoughts that you would be better off or of hurting yourself in some way: not at all Total score: 1 Depression Screening Interpretation: Negative Depression Screening Done: Yes 08383 - PHQ-9 Billing: Yes Source: Developed by Drs. Jose Cortez, Satya Arango and colleagues, with an educational geoffrey from [employer]. Thrive Questionnaire Date Thrive assessed: 12/04/24 I am a: Patient What is your living situation today?: I have a steady place to live Within the past 12 months, did the food you bought not last and you didn't have the money to get more?: Never true Within the past 12 months, did you worry whether your food would run out before you got money to buy more?: Never true Do you have trouble paying for medicines?: No Do you have trouble getting transportation to medical appointments?: No Do you have trouble paying your heating and electricity bill?: No Do you have trouble taking care of your child, family member or friend?: No Do you have trouble with day-to-day activities such as bathing, preparing meals, shopping, managing finances, etc.?: No Are you currently unemployed and looking for a job?: No Are you interested in more education?: No THRIVE Score: 0 AUDIT C Alcohol Use Questionnaire (AUDIT-C) 1. How often do you have a drink containing alcohol?: Never 3. How often do you have six or more drinks on one occasion?: Never Total Score: 0 Score Reviewed/Action Taken: No TIMOTHY-7 AMB Questionnaire TIMOTHY-7 Date TIMOTHY - 7 assessed: 12/04/24 Feeling nervous, anxious, or on edge: 0 = Not at all Not being able to stop or control worryin = Not at all Worrying too much about different things: 0 = Not at all Trouble relaxin = Not at all Being so restless that it is hard to sit still: 0 = Not at all Becoming easily annoyed or irritable: 0 = Not at all Feeling afraid as if something awful might happen: 0 = Not at all Total TIOMTHY-7 score (0-4 normal; 5-9 mild; 10-14 moderate; 15-21 severe): 0 Source: Developed by Drs. Jose Cortez, Satya Arango and colleagues, with an educational geoffrey from [employer]. TIMOTHY-7 Assessment Billing TIMOTHY-7 Assessment Tool: TIMOTHY-7 Assessment 82220 Review of Systems Const Details: - Constitutional: Denies fevers. - Respiratory: Reports a chronic dry cough, which is more prominent at night and improves with water intake. - Cardiovascular: Denies cough as a side effect from lisinopril. - Eyes: Reports recent cataract surgery. All systems reviewed & are unremarkable except as noted in HPI and below Physical exam (Primary Care) Vital Signs: Last Vital Signs Temp 98.0 F 12/18/24 14:08 Pulse 86 12/18/24 14:08 Resp 14 12/18/24 14:08 BP 137/67 12/18/24 14:08 Pulse Ox 95 12/18/24 14:08 Oxygen Delivery Method Room Air 12/18/24 14:08 Care Plan Goal for BP management: <140/90 at Goal BMI result Body Mass Index 24.2 Normal BMI Tobacco/Smoking Status: Tobacco use Status Tobacco use date assessed 12/04/24 12/18/24 14:12 Patient Tobacco Use Status Never used Tobacco 12/18/24 14:12 PHQ-9: PHQ-9 Score PHQ-9: Total score 1 12/18/24 14:12 Depression Screening Interpretation: Negative Thrive Assessment: Date of Thrive Assessment Date Thrive assessed 12/04/24 12/18/24 14:12 Const Other: Appearance: Alert. Oriented X3. No acute distress. Head: Normal external exam. Normocephalic. Atraumatic. Eyes: Pupils are equal, round, and reactive to light. Extraocular movements intact. Conjunctiva and sclera normal. Eyelids normal. Throat: Pharynx normal. Uvula midline. Moist mucous membranes. Neck: Normal inspection. Neck supple. Full range of motion. Cardiovascular: Normal heart rate and rhythm. Respiratory: No respiratory distress. Painless inspiration. Back: Full range of motion noted. Skin: Skin warm and dry. Normal skin color. Normal skin turgor. No rashes/lesions/lacerations noted. Extremities: Extremities exhibit normal range of motion. Neuro: Oriented X 3. No motor deficit. No sensory deficit. Reflexes normal. Results Reviewed Results Reviewed: - CT Chest: Showed stable subcentimeter, subpleural pulmonary nodules and bronchiectasis in the right lower lung lobe. - Labs (October): - Total Cholesterol: 205 (down from 211). - LDL Cholesterol: 148 (down from 150). - TSH: 4.81. - Free T4: Normal. - AST/ALT: Chronically elevated. Coding Level of Care Code Est Pt Level 4 (97061) Complex EM visit Add On G2211 Diagnoses Hypertension I10 Subclinical hypothyroidism E03.8 Bronchiectasis without complication J47.9 Bronchiectasis type: uncomplicated Pulmonary nodules R91.8 Pure hypercholesterolemia, unspecified E78.00 Additional Codes TIMOTHY-7 Assessment Billing - TIMOTHY-7 Assessment Tool: TIMOTHY-7 Assessment 94657 ([id number]) PHQ-9 - 84240 - PHQ-9 Billing: Yes ([id number]) Assessment & Plan Assessment & Plan (1) Hypertension: Code(s): I10 - Essential (primary) hypertension Category: Medical Plan: The patient's blood pressure is well-controlled at 137/67 mmHg on lisinopril 10 mg. She denies any side effects. Will continue the current dosage and send a 90-day prescription with three refills. (2) Subclinical hypothyroidism: Code(s): E03.8 - Other specified hypothyroidism Category: Medical Plan: The patient's TSH was slightly elevated at 4.81, with a normal free T4. Given her asymptomatic status and history of fluctuating levels, we will monitor with a repeat thyroid lab test before considering medication. Medication will not be initiated if the level remains below 10. The patient was informed she does not need to fast for the test. (3) Bronchiectasis: Code(s): J47.9 - Bronchiectasis, uncomplicated Category: Medical Qualifiers: Bronchiectasis type: uncomplicated Qualified Code(s): J47.9 - Bronchiectasis, uncomplicated Plan: Chest CT shows stable findings, including bronchiectasis and subpleural pulmonary nodules. The patient has a chronic, non-productive cough, but is afebrile. No antibiotic treatment is indicated at this time to avoid resistance and potential lung scarring. The patient was advised to temporarily pause using her incentive spirometer for about a month to avoid increasing intraocular pressure following her recent cataract surgery. (4) Pulmonary nodules: Code(s): R91.8 - Other nonspecific abnormal finding of lung field Category: Medical Plan: Chest CT shows stable findings, including bronchiectasis and subpleural pulmonary nodules. The patient has a chronic, non-productive cough, but is afebrile. No antibiotic treatment is indicated at this time to avoid resistance and potential lung scarring. The patient was advised to temporarily pause using her incentive spirometer for about a month to avoid increasing intraocular pressure following her recent cataract surgery. (5) Pure hypercholesterolemia, unspecified: Code(s): E78.00 - Pure hypercholesterolemia, unspecified Category: Medical Plan: Cholesterol levels have slightly improved without medication, which the patient has not tolerated well in the past. We will continue to monitor her cholesterol without initiating pharmacotherapy. Plan Plan Patient was informed and verbally consented to the use of an ambient scribe for clinic note documentation during this visit. 1. Essential Hypertension The patient's blood pressure is well-controlled at 137/67 mmHg on lisinopril 10 mg. She denies any side effects. Will continue the current dosage and send a 90-day prescription with three refills. 2. Subclinical Hypothyroidism The patient's TSH was slightly elevated at 4.81, with a normal free T4. Given her asymptomatic status and history of fluctuating levels, we will monitor with a repeat thyroid lab test before considering medication. Medication will not be initiated if the level remains below 10. The patient was informed she does not need to fast for the test. 3. Bronchiectasis And Pulmonary Nodule Chest CT shows stable findings, including bronchiectasis and subpleural pulmonary nodules. The patient has a chronic, non-productive cough, but is afebrile. No antibiotic treatment is indicated at this time to avoid resistance and potential lung scarring. The patient was advised to temporarily pause using her incentive spirometer for about a month to avoid increasing intraocular pressure following her recent cataract surgery. 4. Hypercholesterolemia Cholesterol levels have slightly improved without medication, which the patient has not tolerated well in the past. We will continue to monitor her cholesterol without initiating pharmacotherapy. 5. Follow-Up The patient has a follow-up appointment scheduled for April. A message was sent to the referral department regarding the pending physical therapy referral for her , Chuck, and the patient was advised to call the office in a week if she has not been contacted. I reviewed the patient's recent chest CT, noting that findings of subpleural pulmonary nodules and bronchiectasis are stable, and we agreed to hold off on antibiotics given her chronic, non-productive cough and lack of fever to avoid resistance. I advised her to stop using the incentive spirometer for about a month due to her recent cataract surgery to avoid increased intraocular pressure. We discussed her blood pressure, which is well-controlled on lisinopril 10 mg, and I will send a 90-day supply with refills as she has tolerated it well. I explained that her TSH is slightly elevated, but since her free T4 is normal and she is asymptomatic, we will repeat the lab before considering medication. I noted the slight improvement in her cholesterol and her history of not tolerating medication, so we will continue monitoring. I also followed up on a pending physical therapy referral for her , Chuck, and advised her to contact the office in one week if she has not heard from them. Her next appointment is scheduled for April. Medications: Refilled lisinopril 10 mg PO DAILY 90 tabs 3RF Patient Instructions: - Continue taking your lisinopril medication for blood pressure as prescribed. A new 90-day prescription with three refills will be sent to your pharmacy. - Please go to the lab to get your thyroid level re-checked. You can go at any time, as you do not need to be fasting for this test. - Do not use your breathing exercise machine (incentive spirometer) for about a month to allow your eye to heal after surgery. - Continue your healthy diet to help manage your cholesterol. - Your next follow-up visit is scheduled for April. - Regarding your 's ([facility]uhck's) physical therapy, please call our office in one week if you have not been contacted by the referral department.
--- OUTSIDE RECORDS SUMMARY | 2024-12-18 17:02 | XMS_ITS | Clinical Summary ---
Author Organization [facility] Address [address] [place] [phone] Phone Care Team Providers Care Environmental Officer Name Role Phone Jose Cuadra DO Primary [...] file Insurance MEDICARE PART A & B Pharmacy Development MEDEX SUPPLEMENT MEDICARE PART A & B Pharmacy Development MEDEX SUPPLEMENT MEDICARE PART A & B [facility] MEDEX SUPPLEMENT MEDICARE PART A & B Pharmacy Development MEDEX SUPPLEMENT MEDICARE PART A & B Pharmacy Development MEDEX SUPPLEMENT MEDICARE PART A & B Pharmacy Development MEDEX SUPPLEMENT MEDICARE PART A & B Pharmacy Development MEDEX SUPPLEMENT MEDICARE PART A & B Pharmacy Development MEDEX SUPPLEMENT MEDICARE PART A & B Pharmacy Development MEDEX SUPPLEMENT Care Teams Environmental Officer Relationship Specialty Start Date End Date Jose Cuadra DO [address] [place] [id number] PCP - General 02/17/17 Additional Source Comments The information contained in this document represents components of the legal health record. It is not the complete legal health record.[facility]
--- OUTSIDE RECORDS SUMMARY | 2024-12-18 17:02 | XMS_ITS | Encounter Summary ---
Author Organization [facility] Address [address] [place] [address] Phone Care Team Providers Care Blast Furnace Keeper Name Role Phone Jose Cuadra DO Unavailable Chito Han MD Unavailable [phone] Jose Cuadra DO Primary Care Provider [phone] Encounter Details Date Type Department Care Team (Late st Contact Info) Description 12/22/2017 Ancillary Orders Virtual Department [address] [place] [address] Jose Cuadra DO [address] [place] [id number] Breast screening Social History Tobacco Use Types [...] unspecified documented in this encounter Care Teams Blast Furnace Keeper Relationship Specialty Start Date End Date Jose Cuadra DO [address] [place] [phone] PCP - General 02/17/17 Jose Cuadra DO [address] [place] [id number] Historical LMR Provider 12/01/16 2 Chito Han MD [address] [place] [id number] Historical LMR Provider 12/01/16 2 documented as of this encounter Additional Source Comments The information contained in this document represents components of the legal health record. It is not the complete legal health record.[facility]
--- OUTSIDE RECORDS SUMMARY | 2024-12-18 17:02 | XMS_ITS | Encounter Summary ---
Author Organization [facility] Address [address] [place] [phone] Phone Care Team Providers Care Marketing Analytics Lead Name Role Phone Jose Cuadra DO Primary Care Provider [phone] Encounter Details Date Type Department Care Team (Late st Contact Info) Description 12/22/2021 Procedure Pass [address] [place] [address] Social History Tobacco Use Types Packs/Day Years [...] on filedocumented in this encounter Care Teams Marketing Analytics Lead Relationship Specialty Start Date End Date Jose Cuadra DO [address] [place] [id number] PCP - General 02/17/17 documented as of this encounter Additional Source Comments The information contained in this document represents components of the legal health record. It is not the complete legal health record.[facility]
--- OUTSIDE RECORDS SUMMARY | 2024-12-18 17:02 | XMS_ITS | Encounter Summary ---
Author Organization [facility] Address [address] [place] [phone] Phone Care Team Providers Care Bulk Sealer Operator Name Role Phone Jose Cuadra DO Primary Care Provider Encounter Details Date Type Department Care Team (Latest Contact Info) Description 12/22/2021 Transcribe Orders Virtual Department [address] [place] [address] Jose Cuadra DO [address] [place] [address] Breast screening (Primary Dx) Social History Tobacco [...] unspecified documented in this encounter Care Teams Bulk Sealer Operator Relationship Specialty Start Date End Date Jose Cuadra DO [address] [place] [id number] PCP - General 02/17/17 documented as of this encounter Additional Source Comments The information contained in this document represents components of the legal health record. It is not the complete legal health record.[facility]
== END 2024-12-18 14:36 | disposition home or self-care (01) ==
LOC: HO.HMCSH 13:59
PROVIDERS: PCP Physician Assistant Medical; Visit Provider Physician Assistant Medical
DX: I10 Essential (primary) hypertension (principal); E03.8 Other specified hypothyroidism; J47.9 Bronchiectasis, uncomplicated; R91.8 Other nonspecific abnormal finding of lung field; E78.00 Pure hypercholesterolemia, unspecified

== ENCOUNTER → 2024-12-18 13:59 | Outpatient (BNVA) | payer MEDICARE, SELFPAY | PROVIDERS: PCP Physician Assistant Medical; Visit Provider Physician Assistant Medical | DX: Z71.2 Person consulting for explanation of examination or test findings (principal); I10 Essential (primary) hypertension; E03.8 Other specified hypothyroidism; J47.9 Bronchiectasis, uncomplicated; R91.8 Other nonspecific abnormal finding of lung field; E78.00 Pure hypercholesterolemia, unspecified; Z13.31 Encounter for screening for depression | CPT/HCPCS: 96127; 99212 ==